=== PATIENT | male | born 1975 | race Caucasian/White ===

== ENCOUNTER 2021-08-27 21:06 | Inpatient (IN) | payer BC ==
[2021-08-27] MEDS ORDERED: IBUPROFEN 600 MG TAB PO STA (21:37)
[2021-08-27] MEDS ORDERED: ACETAMINOPHEN TAB 325 MG TAB PO STA (21:37)
[2021-08-27] MEDS ORDERED: SODIUM CHLORIDE 0.9% 1,000 ML IV ONE (21:38)
[2021-08-27] MEDS ORDERED: DEXAMETHASONE SOD PHOSPHATE 10 MG/ML 1 ML VIAL IV STA (21:38)
--- NOTE | 2021-08-27 21:42 | ED ---
SOB HPI - General Chief Complaint: Shortness of Breath Stated Complaint: BLAYNE, covid+ Time Seen by Provider: 08/27/21 21:11 Source: patient, EMS Mode of arrival: EMS Limitations: no limitations - History of Present Illness Initial Comments: This patient is a 46-year-old man who presents with complaint of shortness of breath, fatigue, decreased by mouth intake, that have all been going on for nearly a week now. He states that just prior to onset of these things she had developed cough, fevers chills, body aches, vomiting and diarrhea and was then diagnosed with COVID-19. He states that he did receive the monoclonal antibody treatment a couple of days ago, but he has only felt worse since that time. MD Complaint: shortness of breath, cough Onset/Timin -: week(s) Consistency: constant Improves With: oxygen Worsens With: exertion Known History Of: other Associated Symptoms: fever, cough Treatments Prior to Arrival: oxygen - Related Data Home Oxygen Therapy: No Allergies Allergy/AdvReac Type Severity Reaction Status Date / Time No Known Allergies Allergy Verified 08/27/21 21:20 Review of Systems ROS Statement: Those systems with pertinent positive or pertinent negative responses have been documented in the HPI. ROS Other: All systems not noted in ROS Statement are negative. Constitutional: Reports: fever, chills, weakness Respiratory: Reports: cough, dyspnea. Denies: hemoptysis Cardiovascular: Denies: chest pain, palpitations, edema, syncope Gastrointestinal: Reports: nausea, vomiting, diarrhea. Denies: abdominal pain, constipation, melena, hematochezia Genitourinary: Denies: dysuria, hematuria Musculoskeletal: Denies: back pain Skin: Denies: rash Neurological: Reports: headache. Denies: weakness, numbness Past Medical History Past Medical History: Diabetes Mellitus History of Any Multi-Drug Resistant Organisms: None Reported Past Surgical History: Back Surgery Additional Past Surgical History / Comment(s): hip surgery Past Psychological History: No Psychological Hx Reported Smoking Status: Never smoker Past Alcohol Use History: Occasional Past Drug Use History: None Reported General Exam Limitations: no limitations General appearance: alert, in no apparent distress Head exam: Present: normocephalic Eye exam: Present: normal appearance. Absent: scleral icterus, conjunctival injection ENT exam: Present: normal oropharynx Neck exam: Present: normal inspection, full ROM. Absent: meningismus Respiratory exam: Present: rales. Absent: respiratory distress, wheezes, rhonchi, stridor Cardiovascular Exam: Present: regular rate, normal rhythm, normal heart sounds. Absent: systolic murmur, diastolic murmur, rubs, gallop GI/Abdominal exam: Present: soft. Absent: distended, tenderness, guarding, rebound, rigid, mass Extremities exam: Present: normal inspection, normal capillary refill. Absent: pedal edema, calf tenderness Back exam: Present: normal inspection. Absent: CVA tenderness (R), CVA tenderness (L) Neurological exam: Present: alert Skin exam: Present: warm, dry, intact, normal color. Absent: rash Course Vital Signs 08/27/21 08/27/21 21:13 22:50 Temperature 100.8 F H Pulse Rate 100 103 H Respiratory 18 20 Rate Blood Pressure 141/88 127/89 O2 Sat by Pulse 86 L 93 L Oximetry Medical Decision Making - Lab Data Result diagrams: 08/27/21 22:50 08/27/21 22:50 Lab Results 08/27/21 08/27/21 08/27/21 Range/Units 22:50 22:50 22:50 WBC 10.4 (3.8-10.6) k/uL RBC 4.96 (4.30-5.90) m/uL Hgb 15.3 (13.0-17.5) gm/dL Hct 42.2 (39.0-53.0) % MCV 85.2 (80.0-100.0) fL MCH 30.9 (25.0-35.0) pg MCHC 36.2 (31.0-37.0) g/dL RDW 12.2 (11.5-15.5) % Plt Count 400 (150-450) k/uL MPV 8.6 Neutrophils % 81 % Lymphocytes % 7 % Monocytes % 8 % Eosinophils % 1 % Basophils % 0 % Neutrophils # 8.4 H (1.3-7.7) k/uL Lymphocytes # 0.7 L (1.0-4.8) k/uL Monocytes # 0.9 (0-1.0) k/uL Eosinophils # 0.1 (0-0.7) k/uL Basophils # 0.1 (0-0.2) k/uL Hyperchromasia Slight D-Dimer 1.39 H (<0.60) mg/L FEU Sodium 132 L (137-145) mmol/L Potassium 4.7 (3.5-5.1) mmol/L Chloride 99 (98-107) mmol/L Carbon Dioxide 24 (22-30) mmol/L Anion Gap 9 mmol/L BUN 18 (9-20) mg/dL Creatinine 0.85 (0.66-1.25) mg/dL Est GFR (CKD-EPI)AfAm >90 (>60 ml/min/1.73 sqM) Est GFR (CKD-EPI)NonAf >90 (>60 ml/min/1.73 sqM) Glucose 204 H (74-99) mg/dL Plasma Lactic Acid Vince (0.7-2.0) mmol/L Calcium 8.6 (8.4-10.2) mg/dL Total Bilirubin 1.5 H (0.2-1.3) mg/dL AST 48 (17-59) U/L ALT 39 (4-49) U/L Alkaline Phosphatase 156 H (38-126) U/L Troponin I (0.000-0.034) ng/mL NT-Pro-B Natriuret Pep pg/mL Total Protein 6.7 (6.3-8.2) g/dL Albumin 3.2 L (3.5-5.0) g/dL 08/27/21 08/27/21 08/27/21 Range/Units 22:50 22:50 22:50 WBC (3.8-10.6) k/uL RBC (4.30-5.90) m/uL Hgb (13.0-17.5) gm/dL Hct (39.0-53.0) % MCV (80.0-100.0) fL MCH (25.0-35.0) pg MCHC (31.0-37.0) g/dL RDW (11.5-15.5) % Plt Count (150-450) k/uL MPV Neutrophils % % Lymphocytes % % Monocytes % % Eosinophils % % Basophils % % Neutrophils # (1.3-7.7) k/uL Lymphocytes # (1.0-4.8) k/uL Monocytes # (0-1.0) k/uL Eosinophils # (0-0.7) k/uL Basophils # (0-0.2) k/uL Hyperchromasia D-Dimer (<0.60) mg/L FEU Sodium (137-145) mmol/L Potassium (3.5-5.1) mmol/L Chloride (98-107) mmol/L Carbon Dioxide (22-30) mmol/L Anion Gap mmol/L BUN (9-20) mg/dL Creatinine (0.66-1.25) mg/dL Est GFR (CKD-EPI)AfAm (>60 ml/min/1.73 sqM) Est GFR (CKD-EPI)NonAf (>60 ml/min/1.73 sqM) Glucose (74-99) mg/dL Plasma Lactic Acid Vince 1.3 (0.7-2.0) mmol/L Calcium (8.4-10.2) mg/dL Total Bilirubin (0.2-1.3) mg/dL AST (17-59) U/L ALT (4-49) U/L Alkaline Phosphatase (38-126) U/L Troponin I <0.012 (0.000-0.034) ng/mL NT-Pro-B Natriuret Pep 64 pg/mL Total Protein (6.3-8.2) g/dL Albumin (3.5-5.0) g/dL - EKG Data -: EKG Interpreted by [facility] EKG shows normal: sinus rhythm, axis (Normal), intervals (Normal), QRS complexes (Normal), ST-T waves (Normal) Rate: normal (Rate 92 bpm) Interpretation: normal EKG Disposition Referrals: Vasiliy Jones DO [Primary Care Provider] - 1-2 days
--- NOTE | 2021-08-27 22:32 | XR ---
EXAMINATION TYPE: XR chest 2V DATE OF EXAM: 08/27/2021 COMPARISON: NONE HISTORY: Short of breath TECHNIQUE: 2 views FINDINGS: Heart and mediastinum are normal. There is patchy bilateral pulmonary interstitial and airs pace infiltrates. Costophrenic angles are clear. Mediastinum within normal limits. There are no hilar masses. Bony thorax is intact. IMPRESSION: Patchy bilateral extensive airspace pneumonia.
[2021-08-27 22:48] LABS: Basophils # (A) 0.1 k/uL (0-0.2); Basophils % (A) 0 %; Eosinophils # (A) 0.1 k/uL (0-0.7); Eosinophils % (A) 1 %; HCT 42.2 % (39.0-53.0); HGB 15.3 gm/dL (13.0-17.5); Hyperchromasia Slight; Lymphocytes # (A) 0.7 k/uL (1.0-4.8); Lymphocytes % (A) 7 %; MCH 30.9 pg (25.0-35.0); MCHC 36.2 g/dL (31.0-37.0); MCV 85.2 fL (80.0-100.0); Mean Platelet Volume 8.6; Monocytes # (A) 0.9 k/uL (0-1.0); Monocytes % (A) 8 %; Neutrophils # (A) 8.4 k/uL (1.3-7.7); Neutrophils % (A) 81 %; Platelet Count 400 k/uL (150-450); RBC 4.96 m/uL (4.30-5.90); RDW 12.2 % (11.5-15.5); WBC 10.4 k/uL (3.8-10.6)
[2021-08-27 23:14] LABS: ALT 39 U/L (4-49); African American GFR (CKD) >90 (>60 ml/min/1.73 sqM); Anion Gap 9 mmol/L; Blood Urea Nitrogen 18 mg/dL (9-20); Calcium 8.6 mg/dL (8.4-10.2); Carbon Dioxide 24 mmol/L (22-30); Chloride 99 mmol/L (98-107); Glucose 204 mg/dL (74-99); Non-African American GFR(CKD) >90 (>60 ml/min/1.73 sqM); Sodium 132 mmol/L (137-145); Total Bilirubin 1.5 mg/dL (0.2-1.3)
[2021-08-28 00:01] LABS: AST 48 U/L (17-59); Albumin 3.2 g/dL (3.5-5.0); Alkaline Phosphatase 156 U/L (38-126); Potassium 4.7 mmol/L (3.5-5.1); Total Protein 6.7 g/dL (6.3-8.2)
--- NOTE | 2021-08-28 01:06 | CT ---
EXAMINATION TYPE: CT chest angio for PE DATE OF EXAM: 08/28/2021 COMPARISON: None HISTORY: pe CT DLP: 289.4 mGycm Automated exposure control for dose reduction was used. CONTRAST: Performed with IV Contrast, patient injected with 90 mL of Isovue 370. Images obtained from the thoracic inlet to the diaphragm with IV contrast. There are 3-D post process ed images. There is extensive patchy airspace consolidation in both lungs. Heart is within normal limits of size . There is no pericardial effusion. There is no pleural effusion or pneumothorax. There is no mediastinal adenopathy. There are a few bronchial lymph nodes up to 1 cm. Thoracic aorta is intact. There is no aneurysm or dissection. There is no evidence of filling defect in the pulmonary arteries. The thoracic vertebra have normal alignment. Sternum is intact. Posterior elements are intact. IMPRESSION: No evidence of pulmonary embolism. Extensive pulmonary airspace infiltrates.
[2021-08-28] MEDS ORDERED: PNEUMONIA PROTOCOL UTILIZED 1 EACH MISC PO PRN (01:43)
[2021-08-28] MEDS ORDERED: ALBUTEROL NEBULIZED 2.5 MG/3 ML INHALATION PRN (01:48)
[2021-08-28] MEDS ORDERED: AZITHROMYCIN 500 MG in SODIUM CHLORIDE 0.9% 250 ML IVPB ONE (02:00)
[2021-08-28] MEDS: SODIUM CHLORIDE 0.9% 1,000 ML IV SCH ×3 (02:20→21:02)
[2021-08-28] MEDS: ALBUTEROL HFA INHALER INHALATION SCH ×5 (07:00→20:54)
[2021-08-28] MEDS: DEXAMETHASONE SOD PHOSPHATE 10 MG/ML 1 ML VIAL IV SCH (09:33)
[2021-08-28] MEDS ORDERED: ONDANSETRON 4 MG/2 ML VIAL IVP PRN (13:14)
[2021-08-28] MEDS ORDERED: MELATONIN 3 MG TABLET PO PRN (13:14)
[2021-08-28] MEDS ORDERED: NALOXONE 0.4 MG/ML 1 ML VIAL IV PRN (13:14)
[2021-08-28] MEDS ORDERED: MAG HYDROX/AL HYDROX/SIMETH 30 ML CUP PO PRN (13:14)
[2021-08-28] MEDS ORDERED: CALCIUM CARBONATE 500 MG CHEWABLE PO PRN (13:14)
--- NOTE | 2021-08-28 13:19 | P.HPIM ---
History of Present Illness H&P Date: 08/28/21 Chief Complaint: Shortness of breath This is a 46-year-old patient who follows with Dr. Jones. Patient is a known diabetic. Patient is not vaccinated against COVID 19. Patient's had respiratory symptoms that started closer 2 weeks ago. Symptoms have been progressive. Increase in shortness of breath. Cough. Fever or chills. No diarrhea. Decrease in taste and smell. Nausea. Poor appetite. Patient's also got the COVID 19. 4 days ago patient did receive the antibodies. Symptoms have been worsening has decided to come in. Pulse ox was 86% on room air upon presentation. Review of systems: GEN.: Fever, chills, decreased appetite EYES: None HEENT: Loss of taste and smell NECK: None RESPIRATORY: As above CARDIOVASCULAR: None GASTROINTESTINAL: None GENITOURINARY: None MUSCULOSKELETAL: None LYMPHATICS: None HEMATOLOGICAL: None PSYCHIATRY: None NEUROLOGICAL: None Past medical history to include: Diabetes mellitus type 2 Social history: . Does not smoke. Alcohol occasionally. 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 EYES: Pupils equal. Conjunctiva normal. HEENT: External appearance of nose and ears normal, oral cavity grossly normal. NECK: JVD not raised; masses not palpable. HEART: First and second heart sounds are normal; no edema. LUNGS: Respiratory rate increased; bilateral basilar crackles. ABDOMEN: Soft, nontender, liver spleen not palpable, no masses palpable. PSYCH: Alert and oriented x3; mood and affect anxiousl. NEUROLOGICAL: Cranial nerves grossly intact; no facial asymmetry, power and sensation grossly intact. LYMPHATICS: No lymph nodes palpable in the axilla and neck INVESTIGATIONS, reviewed in the clinical context: WBC 10.4 hemoglobin 15.3 platelets 400 d-dimer 1.39 sodium 132 potassium 4.7 BUN 18 creatinine 0.85 troponin I less than 0.012 EKG tracing personally reviewed by me-normal sinus rhythm Chest x-ray film personally reviewed by me-bilateral scattered infiltrates Computed tomography scan of chest angina for PE: Negative for PE. Extensive pulmonary airspace infiltrates Assessment and plan: -Acute bilateral severe rhinitis/COVID 19, and an vaccinated patient. Patient did receive the antibody treatment 4 days ago. Symptoms have been progressively getting worse. Started symptoms about 14 years ago. Lovenox 70 mg subcu twice a day, oxygen supplementation, vitamin C, vitamin D, zinc sulfate, IV Decadron. Consult pulmonary, ID- -Acute hypoxic respiratory failure from COVID 19 On 6 L of nasal cannula -Diabetes mellitus type 2 on oral hypoglycemic Diabetic diet. Follow Accu-Cheks -Mild hyponatremia from decreased solute intake -Hypoalbuminemia, acute phase reactant Oxygen supplementation, IV Decadron, subcu Lovenox, vitamin C vitamin D zinc sulfate, incentive spirometry. Consult ID and pulmonary Given the complexity and severity of patient's condition expect the patient to be in the hospital at least for 2 overnights Past Medical History Past Medical History: Diabetes Mellitus History of Any Multi-Drug Resistant Organisms: None Reported Past Surgical History: Back Surgery Additional Past Surgical History / Comment(s): hip surgery Past Psychological History: No Psychological Hx Reported Smoking Status: Never smoker Past Alcohol Use History: Occasional Past Drug Use History: None Reported Medications and Allergies Home Medications Medication Instructions Recorded Confirmed Type sitaGLIPtin PHOS/metFORMIN HCL 1 tab PO AC-BID 08/28/21 08/28/21 History [Janumet 50-1,000 mg Tablet] Allergies Allergy/AdvReac Type Severity Reaction Status Date / Time No Known Allergies Allergy Verified 08/28/21 07:20 Physical Exam Vitals: Vital Signs Temp Pulse Resp BP Pulse Ox 08/28/21 05:00 97.4 F L 73 17 119/84 97 08/28/21 02:26 98.8 F 08/28/21 00:33 99.3 F 93 17 110/79 94 L 08/27/21 22:50 103 H 20 127/89 93 L 08/27/21 21:13 100.8 F H 100 18 141/88 86 L Intake and Output 08/27/21 08/28/21 08/28/21 22:59 06:59 14:59 Other: Weight 72.575 kg Results CBC & Chem 7: 08/27/21 22:50 08/27/21 22:50 Labs: Abnormal Lab Results - Last 24 Hours (Table) 08/27/21 08/27/21 08/27/21 Range/Units 22:50 22:50 22:50 Neutrophils # 8.4 H (1.3-7.7) k/uL Lymphocytes # 0.7 L (1.0-4.8) k/uL D-Dimer 1.39 H (<0.60) mg/L FEU Sodium 132 L (137-145) mmol/L Glucose 204 H (74-99) mg/dL Total Bilirubin 1.5 H (0.2-1.3) mg/dL Alkaline Phosphatase 156 H (38-126) U/L Albumin 3.2 L (3.5-5.0) g/dL
[2021-08-28] MEDS: CHOLECALCIFEROL 25 MCG (1000 IU) TABLET PO SCH (13:40)
[2021-08-28] MEDS: ZINC SULFATE 220 MG CAP PO SCH (13:40)
[2021-08-28] MEDS: ASCORBIC ACID 500 MG TAB PO SCH (13:40)
--- NOTE | 2021-08-28 14:59 | P.CNPUL ---
History of Present Illness Consult date: 08/28/21 Requesting physician: Constantino Diaz Reason for consult: dyspnea, hypoxemia, pneumonia, abnormal CXR/CT Chief complaint: COVID-19 pneumonia, shortness of breath History of present illness: 46-year-old white male patient with past medical history of diabetes mellitus, never smoker, chronic back pain, patient is not vaccinated against COVID-19, who came into the emergency department on 08/27/2021 for evaluation of shortness of breath, fatigue, decreased oral intake, vomiting. He states he was recently diagnosed with COVID-19, he had a positive COVID-19 test on August 19. His symptoms started a week prior to that around August 15. His is also COVID positive. However she is less than him, yesterday he noted he was more short of breath, very weak, and his pulse ox was down to 78-84% on room air, called EMS. Patient states that he did receive the monoclonal antibody treatment a couple days ago however has continued to feel worse. His chest x-ray on 08/27/2021 shows patchy bilateral extensive airspace pneumonia. He was satting 86% on room air in the emergency department, he had a low-grade fever with a temp of 100.8F, he is currently up to 6 L on supplemental oxygen, his pulse ox is 92%, his blood work in the emergency department shows white blood cell count 10.4, hemoglobin of 15.3, full code is 8.4, lymphocyte count 0.7, d-dimer is 1.39, sodium is 132, the rest of electrolytes were unremarkable, plasma lactic acid was 1.3, AST and ALT were 48 and 39, alkaline phosphatase was 156, troponin was less than 0.012, proBNP was normal at 64. CTA chest has been completed showing no evidence of pulmonary embolism, it did show extensive pulmonary airspace infiltrates. EKG showed normal sinus rhythm. Patient was given a liter and a fluid bolus with 0.9 normal saline, his maintenance IVs currently is at 100 ML per hour, he was started on IV Lovenox 6 mg daily, with initial dose of 10 mg IV push in the emergency department, his Lovenox dose is 60 mg twice daily however there is no evidence of PE. Pro-calcitonin level has been sent and is pending, blood cultures have been sent. Review of Systems All systems: negative Constitutional: Denies chills, Denies fever Eyes: denies blurred vision, denies pain Ears, nose, mouth and throat: Denies headache, Denies sore throat Cardiovascular: Denies chest pain, Denies shortness of breath Respiratory: Reports dyspnea, Denies cough Gastrointestinal: Denies abdominal pain, Denies diarrhea, Denies nausea, Denies vomiting Musculoskeletal: Denies myalgias Integumentary: Denies pruritus, Denies rash Neurological: Denies numbness, Denies weakness Psychiatric: Denies anxiety, Denies depression Endocrine: Denies fatigue, Denies weight change Past Medical History Past Medical History: Diabetes Mellitus History of Any Multi-Drug Resistant Organisms: None Reported Past Surgical History: Back Surgery Additional Past Surgical History / Comment(s): hip surgery Past Psychological History: No Psychological Hx Reported Smoking Status: Never smoker Past Alcohol Use History: Occasional Past Drug Use History: None Reported Medications and Allergies Home Medications Medication Instructions Recorded Confirmed Type sitaGLIPtin PHOS/metFORMIN HCL 1 tab PO AC-BID 08/28/21 08/28/21 History [Janumet 50-1,000 mg Tablet] Allergies Allergy/AdvReac Type Severity Reaction Status Date / Time No Known Allergies Allergy Verified 08/28/21 07:20 Physical Exam Vitals: Vital Signs Temp Pulse Resp BP Pulse Ox 08/28/21 13:09 104 H 22 134/86 93 L 08/28/21 11:00 88 18 122/85 94 L 08/28/21 10:14 97.3 F L 95 17 122/85 95 08/28/21 07:45 81 22 133/85 94 L 08/28/21 05:00 97.4 F L 73 17 119/84 97 08/28/21 02:26 98.8 F 08/28/21 00:33 99.3 F 93 17 110/79 94 L 08/27/21 22:50 103 H 20 127/89 93 L 08/27/21 21:13 100.8 F H 100 18 141/88 86 L Intake and Output 08/27/21 08/28/21 08/28/21 22:59 06:59 14:59 Other: Weight 72.575 kg GENERAL EXAM: Alert, very pleasant, 46-year-old white male, resting on the gurney, on 6 L of oxygen and the pulse ox of 94% comfortable in no apparent distress. HEAD: Normocephalic/atraumatic. EYES: Normal reaction of pupils, equal size. Conjunctiva pink, sclera white. NOSE: Clear with pink turbinates. THROAT: No erythema or exudates. NECK: No masses, no JVD, no thyroid enlargement, no adenopathy. CHEST: No chest wall deformity. Symmetrical expansion. LUNGS: Equal air entry with bibasilar crackles CVS: Regular rate and rhythm, normal S1 and S2, no gallops, no murmurs, no rubs ABDOMEN: Soft, nontender. No hepatosplenomegaly, normal bowel sounds, no guarding or rigidity. EXTREMITIES: No clubbing, no edema, no cyanosis, 2+ pulses and upper and lower extremities. MUSCULOSKELETAL: Muscle strength and tone normal. SPINE: No scoliosis or deformity SKIN: No rashes CENTRAL NERVOUS SYSTEM: Alert and oriented -3. No focal deficits, tone is normal in all 4 extremities. PSYCHIATRIC: Alert and oriented -3. Appropriate affect. Intact judgment and insight. Results - Laboratory Findings CBC and BMP: 08/27/21 22:50 08/27/21 22:50 PT/INR, D-dimer D-Dimer 1.39 mg/L FEU (<0.60) H 08/27/21 22:50 Abnormal lab findings: Abnormal Labs 08/27/21 08/27/21 08/27/21 22:50 22:50 22:50 Neutrophils # 8.4 H Lymphocytes # 0.7 L D-Dimer 1.39 H Sodium 132 L Glucose 204 H Total Bilirubin 1.5 H Alkaline Phosphatase 156 H Albumin 3.2 L - Diagnostic Findings Chest x-ray: report reviewed, image reviewed CT scan - chest: report reviewed, image reviewed Assessment and Plan Plan: Assessment: #1. Acute hypoxic respiratory failure related to acute COVID-19 pneumonia, with onset of symptoms 2 weeks prior to the presentation. Patient is not vaccinated for COVID-19. He had a positive COVID-19 test on August 19, 2021. Patient status post monoclonal antibody infusion on an outpatient basis . Not a candidate for Remdesivir at this time, we'll continue with Decadron and prophylactic anticoagulation, CTA chest showed no evidence of pulmonary embolism #2. Elevated d-dimer, CTA chest negative for pulmonary embolism #3. Mild hyponatremia, with a serum sodium of 132, related to dehydration. Patient reports poor oral intake and nausea and vomiting at home #4. Diabetes mellitus type 2 #5. Nonsmoker Plan: Not a candidate for Remdesivir at this time We will continue with IV Decadron 6 mg daily Continue with prophylactic Lovenox 40 mg daily, no evidence of pulmonary embolism on the CT chest Continue IV hydration Continue COVID-19 vitamins We'll follow inflammatory markers and daily d-dimer Obtain lower extremity Doppler Continue to follow his clinical course make further recommendations I performed a history & physical examination of the patient and discussed their management with my nurse practitioner, Lillian Zhao. I reviewed the nurse practitioner's note and agree with the documented findings and plan of care. Lung sounds are positive for diffuse crackles throughout the lung [place]. The findings and the impression was discussed with the patient. I attest to the documentation by the nurse practitioner. Time with Patient: Greater than 30
--- NOTE | 2021-08-28 15:41 | US ---
EXAMINATION TYPE: US venous doppler duplex LE DATE OF EXAM: 08/28/2021 3:30 PM COMPARISON: NONE CLINICAL HISTORY: elevated d-dimer, covid 19. Covid. No redness. No swelling. SIDE PERFORMED: Bilateral TECHNIQUE: The lower extremity deep venous system is examined utilizing real time linear array sonog hussain with graded compression, doppler sonography and color-flow sonography. VESSELS IMAGED: Common Femoral Vein Deep Femoral Vein Greater Saphenous Vein * Femoral Vein Popliteal Vein Small Saphenous Vein * Proximal Calf Veins (* superficial vessels) Right Leg: Negative for DVT Left Leg: Negative for DVT Grayscale, color doppler, spectral doppler imaging performed of the deep veins of the bilateral lower extremities. There is normal flow, compressibility, vascular waveforms. IMPRESSION: No ultrasound evidence for acute DVT in either lower extremity.
[2021-08-28 17:04] LABS: Glucose,Whole Blood 422 mg/dL (75-99)
[2021-08-28] MEDS: INSULIN ASPART (NovoLOG) 100 UNIT/ML VIAL SQ SCH ×2 (17:06→20:58)
[2021-08-28 20:38] LABS: Glucose,Whole Blood 413 mg/dL (75-99)
[2021-08-28] MEDS ORDERED: ENOXAPARIN 60 MG/0.6 ML SYRINGE SQ SCH (21:00)
[2021-08-28 22:26] LABS: Glucose,Whole Blood 396 mg/dL (75-99)
[2021-08-28] MEDS ORDERED: INSULIN REGULAR BOLUS (FROM DRIP BAG) IV ONE (22:58)
[2021-08-28] MEDS ORDERED: INSULIN REGULAR 100 UNIT in SODIUM CHLORIDE 0.9% 100 ML IV SCH (23:15)
[2021-08-29 00:40] LABS: Glucose,Whole Blood 367 mg/dL (75-99)
[2021-08-29 01:25] LABS: Glucose,Whole Blood 331 mg/dL (75-99)
[2021-08-29 02:04] LABS: Glucose,Whole Blood 282 mg/dL (75-99)
[2021-08-29 02:47] LABS: Glucose,Whole Blood 256 mg/dL (75-99)
[2021-08-29 03:30] LABS: Glucose,Whole Blood 287 mg/dL (75-99)
[2021-08-29 04:40] LABS: Glucose,Whole Blood 229 mg/dL (75-99)
[2021-08-29 05:27] LABS: Glucose,Whole Blood 260 mg/dL (75-99)
[2021-08-29 06:20] LABS: Glucose,Whole Blood 243 mg/dL (75-99)
[2021-08-29 07:05] LABS: Glucose,Whole Blood 238 mg/dL (75-99)
--- NOTE | 2021-08-29 07:05 | XR ---
EXAMINATION TYPE: XR chest 1V portable DATE OF EXAM: 08/29/2021 CLINICAL HISTORY: Difficulty breathing progress study. COVID. TECHNIQUE: Single AP portable upright view of the chest is obtained. COMPARISON: Chest x-ray from 2 days earlier. CTA chest from yesterday. FINDINGS: Bilateral multifocal increased opacities redemonstrated. Relative sparing of left upper valerie ng again seen. Cardiac silhouette size stable and within normal limits. Osseous structures are intact . IMPRESSION: Bilateral multifocal opacities consistent with covid-19 infection are redemonstrated. No significant change from recent studies.
[2021-08-29 07:54] LABS: C Reactive Protein 8.7 mg/dL (<1.0)
[2021-08-29 08:00] LABS: Glucose,Whole Blood 202 mg/dL (75-99)
[2021-08-29] MEDS: CHOLECALCIFEROL 25 MCG (1000 IU) TABLET PO SCH (08:03)
[2021-08-29] MEDS: SODIUM CHLORIDE 0.9% 1,000 ML IV SCH ×2 (08:03→17:23)
[2021-08-29] MEDS: ZINC SULFATE 220 MG CAP PO SCH (08:03)
[2021-08-29] MEDS: ASCORBIC ACID 500 MG TAB PO SCH (08:03)
[2021-08-29] MEDS: ENOXAPARIN 40 MG/0.4 ML SYRINGE SQ SCH (08:03)
[2021-08-29] MEDS: DEXAMETHASONE SOD PHOSPHATE 10 MG/ML 1 ML VIAL IV SCH (08:03)
[2021-08-29] MEDS: ALBUTEROL HFA INHALER INHALATION SCH ×4 (08:52→23:24)
[2021-08-29 10:16] LABS: Glucose,Whole Blood 190 mg/dL (75-99)
[2021-08-29 11:48] LABS: Glucose,Whole Blood 254 mg/dL (75-99)
[2021-08-29 14:04] LABS: Glucose,Whole Blood 251 mg/dL (75-99)
--- NOTE | 2021-08-29 14:33 | P.PN ---
Subjective Progress Note Date: 08/29/21 Principal diagnosis: COVID-19 pneumonia 46-year-old white male patient with past medical history of diabetes mellitus, never smoker, chronic back pain, patient is not vaccinated against COVID-19, who came into the emergency department on 08/27/2021 for evaluation of shortness of breath, fatigue, decreased oral intake, vomiting. He states he was recently diagnosed with COVID-19, he had a positive COVID-19 test on August 19. His symptoms started a week prior to that around August 15. His is also COVID positive. However she is less than him, yesterday he noted he was more short of breath, very weak, and his pulse ox was down to 78-84% on room air, called EMS. Patient states that he did receive the monoclonal antibody treatment a couple days ago however has continued to feel worse. His chest x-ray on 08/27/2021 shows patchy bilateral extensive airspace pneumonia. He was satting 86% on room air in the emergency department, he had a low-grade fever with a temp of 100.8F, he is currently up to 6 L on supplemental oxygen, his pulse ox is 92%, his blood work in the emergency department shows white blood cell count 10.4, hemoglobin of 15.3, full code is 8.4, lymphocyte count 0.7, d-dimer is 1.39, sodium is 132, the rest of electrolytes were unremarkable, plasma lactic acid was 1.3, AST and ALT were 48 and 39, alkaline phosphatase was 156, troponin was less than 0.012, proBNP was normal at 64. CTA chest has been completed showing no evidence of pulmonary embolism, it did show extensive pulmonary airspace infiltrates. EKG showed normal sinus rhythm. Patient was given a liter and a fluid bolus with 0.9 normal saline, his maintenance IVs currently is at 100 ML per hour, he was started on IV Lovenox 6 mg daily, with initial dose of 10 mg IV push in the emergency department, his Lovenox dose is 60 mg twice daily however there is no evidence of PE. Pro-calcitonin level has been sent and is pending, blood cultures have been sent. On 08/29/2021 patient is seen in follow-up on medical surgical floor, he is currently on 5 L of oxygen, does not appear to be in any acute distress, he does have exertional dyspnea, but he was able to get up in the shower today. Pulse ox on 5 L of oxygen was 93-95%, he was afebrile, hemodynamically has been sta ble. CTA chest showed no evidence of pulmonary embolism. His lower extremity Dopplers were negative for DVT. Patient is Lovenox 40 mg once daily, he is on IV hydration with 0.9 normal saline at a rate of 100 ML per hour. He remains on Decadron 6 mg daily. Pro-calcitonin level was 0.40, LDH was 690, and CRP was 8.7. D-dimer was 1.53. Patient has been started on insulin infusion at 5 units per hour for hyperglycemia. He remains on Decadron 6 mg daily, he is on COVID- 19 vitamins. His antibiotics have been discontinued in view of negative pro- calcitonin. Overall she is feeling better, his had no fevers overnight. Objective - Vital Signs Vital signs: Vital Signs Temp 97.4 F L 08/29/21 09:30 Pulse 86 08/29/21 09:30 Resp 18 08/29/21 09:30 BP 125/66 08/29/21 09:30 Pulse Ox 93 L 08/29/21 09:30 Intake & Output 08/28/21 08/29/21 08/29/21 18:59 06:59 18:59 Intake Total 1015 268.091 Output Total 800 Balance 215 268.091 Weight 72.575 kg Intake: Intake, IV Titration 775 28.091 Amount Insulin Regular 100 unit 75 28.091 In Sodium Chloride 0.9% 100 ml @ Titrate IV .Q0M [facility]IK Rx#:[id number] Sodium Chloride 0.9% 1, 700 000 ml @ 100 mls/hr IV . Q10H [facility]IK Rx#:[id number] Oral 240 240 Output: Urine 800 Other: Voiding Method Toilet Toilet # Voids 2 - Exam GENERAL EXAM: Alert, very pleasant, 46-year-old white male, resting on the gurney, on 5 L of oxygen and the pulse ox of 94% comfortable in no apparent distress. HEAD: Normocephalic/atraumatic. EYES: Normal reaction of pupils, equal size. Conjunctiva pink, sclera white. NOSE: Clear with pink turbinates. THROAT: No erythema or exudates. NECK: No masses, no JVD, no thyroid enlargement, no adenopathy. CHEST: No chest wall deformity. Symmetrical expansion. LUNGS: Equal air entry with bibasilar crackles CVS: Regular rate and rhythm, normal S1 and S2, no gallops, no murmurs, no rubs ABDOMEN: Soft, nontender. No hepatosplenomegaly, normal bowel sounds, no guarding or rigidity. EXTREMITIES: No clubbing, no edema, no cyanosis, 2+ pulses and upper and lower extremities. MUSCULOSKELETAL: Muscle strength and tone normal. SPINE: No scoliosis or deformity SKIN: No rashes CENTRAL NERVOUS SYSTEM: Alert and oriented -3. No focal deficits, tone is normal in all 4 extremities. PSYCHIATRIC: Alert and oriented -3. Appropriate affect. Intact judgment and insight. - Labs CBC & Chem 7: 08/27/21 22:50 08/27/21 22:50 Labs: Abnormal Lab Results - Last 24 Hours (Table) 08/27/21 08/28/21 08/28/21 Range/Units 22:50 17:03 20:36 D-Dimer (<0.60) mg/L FEU POC Glucose (mg/dL) 422 H 413 H (75-99) mg/dL Hemoglobin A1c (4.0-6.0) % Lactate Dehydrogenase (313-618) U/L C-Reactive Protein (<1.0) mg/dL Procalcitonin 0.40 H (0.02-0.09) ng/mL 08/28/21 08/29/21 08/29/21 Range/Units 22:24 00:38 01:23 D-Dimer (<0.60) mg/L FEU POC Glucose (mg/dL) 396 H 367 H 331 H (75-99) mg/dL Hemoglobin A1c (4.0-6.0) % Lactate Dehydrogenase (313-618) U/L C-Reactive Protein (<1.0) mg/dL Procalcitonin (0.02-0.09) ng/mL 08/29/21 08/29/21 08/29/21 Range/Units 02:02 02:45 03:28 D-Dimer (<0.60) mg/L FEU POC Glucose (mg/dL) 282 H 256 H 287 H (75-99) mg/dL Hemoglobin A1c (4.0-6.0) % Lactate Dehydrogenase (313-618) U/L C-Reactive Protein (<1.0) mg/dL Procalcitonin (0.02-0.09) ng/mL 08/29/21 08/29/21 08/29/21 Range/Units 04:38 05:25 05:54 D-Dimer (<0.60) mg/L FEU POC Glucose (mg/dL) 229 H 260 H (75-99) mg/dL Hemoglobin A1c 8.4 H (4.0-6.0) % Lactate Dehydrogenase (313-618) U/L C-Reactive Protein (<1.0) mg/dL Procalcitonin (0.02-0.09) ng/mL 08/29/21 08/29/21 08/29/21 Range/Units 06:18 06:29 06:29 D-Dimer 1.53 H (<0.60) mg/L FEU POC Glucose (mg/dL) 243 H (75-99) mg/dL Hemoglobin A1c (4.0-6.0) % Lactate Dehydrogenase 690 H (313-618) U/L C-Reactive Protein 8.7 H (<1.0) mg/dL Procalcitonin (0.02-0.09) ng/mL 08/29/21 08/29/21 08/29/21 Range/Units 07:02 07:57 10:13 D-Dimer (<0.60) mg/L FEU POC Glucose (mg/dL) 238 H 202 H 190 H (75-99) mg/dL Hemoglobin A1c (4.0-6.0) % Lactate Dehydrogenase (313-618) U/L C-Reactive Protein (<1.0) mg/dL Procalcitonin (0.02-0.09) ng/mL 08/29/21 08/29/21 Range/Units 11:44 14:00 D-Dimer (<0.60) mg/L FEU POC Glucose (mg/dL) 254 H 251 H (75-99) mg/dL Hemoglobin A1c (4.0-6.0) % Lactate Dehydrogenase (313-618) U/L C-Reactive Protein (<1.0) mg/dL Procalcitonin (0.02-0.09) ng/mL Microbiology - Last 24 Hours (Table) 08/28/21 02:19 Blood Culture - Preliminary Blood No Growth after 24 hours 08/28/21 02:19 Blood Culture - Preliminary Blood No Growth after 24 hours Assessment and Plan Plan: Assessment: #1. Acute hypoxic respiratory failure related to acute COVID-19 pneumonia, with onset of symptoms 2 weeks prior to the presentation. Patient is not vaccinated for COVID-19. He had a positive COVID-19 test on August 19, 2021. Patient status post monoclonal antibody infusion on an outpatient basis . Not a candidate for Remdesivir at this time, we'll continue with Decadron and prophylactic anticoagulation, CTA chest showed no evidence of pulmonary embolism #2. Elevated d-dimer, CTA chest negative for pulmonary embolism #3. Mild hyponatremia, with a serum sodium of 132, related to dehydration. Patient reports poor oral intake and nausea and vomiting at home #4. Diabetes mellitus type 2 #5. Nonsmoker Plan: Continue current medical treatment We will continue with IV Decadron 6 mg daily Continue with prophylactic Lovenox 40 mg daily, no evidence of pulmonary embolism on the CT chest Continue IV hydration Continue COVID-19 vitamins We'll follow inflammatory markers and daily d-dimer Obtain lower extremity Doppler Continue to follow his clinical course make further recommendations Follow-up d-dimer, and inflammatory markers tomorrow, follow up chest x-ray. I performed a history & physical examination of the patient and discussed their management with my nurse practitioner, Lillian Zhao. I reviewed the nurse practitioner's note and agree with the documented findings and plan of care. Lung sounds are positive for diffuse crackles throughout the lung [place]. The findings and the impression was discussed with the patient. I attest to the documentation by the nurse practitioner. Time with Patient: Less than 30
[2021-08-29 16:05] LABS: Glucose,Whole Blood 216 mg/dL (75-99)
--- NOTE | 2021-08-29 16:25 | P.PN ---
Progress Note - Text Progress Note Date: 08/29/21 Chief Complaint: Shortness of breath This is a 46-year-old patient who follows with Dr. Jones. Patient is a known diabetic. Patient is not vaccinated against COVID 19. Patient's had respiratory symptoms that started closer 2 weeks ago. Symptoms have been progressive. Increase in shortness of breath. Cough. Fever or chills. No diarrhea. Decrease in taste and smell. Nausea. Poor appetite. Patient's also got the COVID 19. 4 days ago patient did receive the antibodies. Symptoms have been worsening has decided to come in. Pulse ox was 86% on room air upon presentation. Admitted with COVID 19 pneumonitis, acute hypoxic respiratory failure. Started on dexamethasone and supportive care, oxygen. 08/29/2021: In bed. Short of breath. Congested cough. Decrease appetite. Accu-Cheks running into 400 yesterday evening. Started on insulin drip. Oral intake about 50-75% Review of systems: Was done for constitutional, cardiovascular, GI, pulmonary. relevant finding as above Active Medications Al Hydroxide/Mg Hydroxide (Mag Hydrox/Al Hydrox/Simeth 30 Ml Cup) 15 ml PO Q6HR PRN PRN Reason: Indigestion Albuterol Sulfate (Albuterol Nebulized 2.5 Mg/3 Ml) 2.5 mg INHALATION RT-Q4H PRN PRN Reason: Dyspnea Albuterol Sulfate (Albuterol Hfa Inhaler) 3 puff INHALATION RT-QID [facility] Last Admin: 08/29/21 12:10 Dose: Not Given Documented by: Ascorbic Acid (Ascorbic Acid 500 Mg Tab) 500 mg PO DAILY [facility] Last Admin: 08/29/21 08:03 Dose: 500 mg Documented by: Calcium Carbonate/Glycine (Calcium Carbonate 500 Mg Chewable) 1,000 mg PO Q4HR PRN PRN Reason: Dyspepsia Cholecalciferol (Cholecalciferol 25 Mcg (1000 Iu) Tablet) 100 mcg PO DAILY [facility] Last Admin: 08/29/21 08:03 Dose: 100 mcg Documented by: Dexamethasone Sodium Phosphate (Dexamethasone Sod Phosphate 10 Mg/Ml 1 Ml Vial) 6 mg IV DAILY [facility] Last Admin: 08/29/21 08:03 Dose: 6 mg Documented by: Enoxaparin Sodium (Enoxaparin 40 Mg/0.4 Ml Syringe) 40 mg SQ DAILY [facility] Last Admin: 08/29/21 08:03 Dose: 40 mg Documented by: Sodium Chloride (Saline 0.9%) 1,000 mls @ 100 mls/hr IV .Q10H [facility] Last Admin: 08/29/21 08:03 Dose: 100 mls/hr Documented by: Insulin Human Regular 100 unit (/ Sodium Chloride) 101 mls @ 0 mls/hr IV .Q0M [facility]; Protocol Last Titration: 08/29/21 16:05 Dose: 3 mls/hr, 3 mls/hr Documented by: Melatonin (Melatonin 3 Mg Tablet) 3 mg PO HS PRN PRN Reason: Insomnia Miscellaneous Information (Pneumonia Protocol Utilized 1 Each Misc) 1 each PO ONCE PRN PRN Reason: Per Protocol Naloxone HCl (Naloxone 0.4 Mg/Ml 1 Ml Vial) 0.2 mg IV Q2M PRN PRN Reason: Opioid Reversal Ondansetron HCl (Ondansetron 4 Mg/2 Ml Vial) 4 mg IVP Q8HR PRN PRN Reason: Nausea And Vomiting Zinc Sulfate (Zinc Sulfate 220 Mg Cap) 220 mg PO DAILY [facility] Last Admin: 08/29/21 08:03 Dose: 220 mg Documented by: Past medical history to include: Diabetes mellitus type 2 Social history: . Does not smoke. Alcohol occasionally. [place] Family history: Reviewed, noncontributory to presentation Physical examination: VITAL SIGNS: Afebrile, 86, 18, 125/66, 93% on 5 L GENERAL: Laying in bed, awake, tired EYES: Pupils equal. Conjunctiva normal. HEENT: External appearance of nose and ears normal, oral cavity grossly normal. PSYCH: Alert and oriented x3; mood and affect anxious. NEUROLOGICAL: Cranial nerves grossly intact; no facial asymmetry, moving all 4 limbs Rest of exam per pulmonary and nursing INVESTIGATIONS, reviewed in the clinical context: July 30: D-dimer 1.53 HbA1c 690 CRP 8.7 WBC 10.4 hemoglobin 15.3 platelets 400 d-dimer 1.39 sodium 132 potassium 4.7 BUN 18 creatinine 0.85 troponin I less than 0.012 EKG tracing personally reviewed by me-normal sinus rhythm Chest x-ray film personally reviewed by me-bilateral scattered infiltrates Computed tomography scan of chest angina for PE: Negative for PE. Extensive pulmonary airspace infiltrates Assessment and plan: -Acute bilateral severe pneumonitis/COVID 19, in a non-vaccinated patient. Received antibody treatment 4 days prior to admission: Slow to respond Lovenox subcu day, oxygen supplementation, vitamin C, vitamin D, zinc sulfate, IV Decadron. -Acute hypoxic respiratory failure from COVID 19: Slow to respond On 5 L of nasal cannula -Diabetes mellitus type 2 on oral hypoglycemic: Uncontrolled with hyperglycemia HbA1c 8.4 IV insulin drip -Mild hyponatremia from decreased solute intake -Hypoalbuminemia, acute phase reactant Oxygen supplementation, IV Decadron, subcu Lovenox, insulin drip. Patient encouraged to sit up in a chair. We'll start the patient on Levemir 30 units starting tonight. Stop insulin drip tonight. Sliding scale to continue. Check lipid profile.
[2021-08-29] MEDS: INSULIN ASPART (NovoLOG) 100 UNIT/ML VIAL SQ SCH ×2 (16:31→18:12)
[2021-08-29 18:09] LABS: Glucose,Whole Blood 307 mg/dL (75-99)
--- NOTE | 2021-08-29 18:19 | PN ---
PROGRESS NOTE DATE OF SERVICE: 08/29/2021 REASON FOR FOLLOW UP: Covid 19 pneumonia. INTERVAL HISTORY: Patient is afebrile. He is breathing slightly comfortably. The patient denies having chest pain. Did have a cough with occasional sputum production. No vomiting. No abdominal pain or diarrhea. PHYSICAL EXAMINATION: Blood pressure 146/76, pulse of temperature 97.4. He is 96% on 5 L nasal cannula. General description is a middle-aged male lying in bed in no distress. Respiratory system unlabored breathing. Coarse breath sounds at bases. No wheeze. Heart S1, S2. Regular rate and rhythm. LABS: No new labs have been obtained today. IMPRESSION/PLAN: Patient with acute Covid 19 pneumonia, patient is currently covered with Lovenox. Continues to have significant purulent sputum. We will follow up on the sputum. Repeat blood cultures and add antibiotic if needed. Continue supportive care. MMODL / IJN: [id number] /
[2021-08-29 20:45] LABS: Glucose,Whole Blood 350 mg/dL (75-99)
[2021-08-30] MEDS: INSULIN ASPART (NovoLOG) 100 UNIT/ML VIAL SQ SCH ×5 (00:18→21:23)
[2021-08-30] MEDS: INSULIN DETEMIR (LEVEMIR) 100 UNIT/ML SYR SQ SCH ×2 (00:19→21:23)
--- NOTE | 2021-08-30 06:54 | XR ---
EXAMINATION TYPE: XR chest 1V portable DATE OF EXAM: 08/30/2021 COMPARISON: 08/29/2021 HISTORY: Covid TECHNIQUE: Single frontal view of the chest is obtained. FINDINGS: There is been no interval change in the scattered partially consolidative opacities bilate rally, right greater than left. The heart size is normal and the pulmonary vasculature is not congested. There is no pneumothorax or large pleural effusion. The osseous structures are intact IMPRESSION: No interval change in the scattered partially consolidative opacities, right greater kaley n left.
[2021-08-30 06:58] LABS: Glucose,Whole Blood 152 mg/dL (75-99)
[2021-08-30 08:38] LABS: ALT 54 U/L (4-49); AST 40 U/L (17-59); African American GFR (CKD) >90 (>60 ml/min/1.73 sqM); Albumin/Globulin Ratio 0.9; Alkaline Phosphatase 121 U/L (38-126); Anion Gap 9 mmol/L; Blood Urea Nitrogen 23 mg/dL (9-20); C Reactive Protein 5.1 mg/dL (<1.0); Calcium 9.2 mg/dL (8.4-10.2); Carbon Dioxide 26 mmol/L (22-30); Chloride 104 mmol/L (98-107); Globulin 3.3 g/dL; Glucose 166 mg/dL (74-99); LDH 699 U/L (313-618); Non-African American GFR(CKD) >90 (>60 ml/min/1.73 sqM); Potassium 4.3 mmol/L (3.5-5.1); Sodium 139 mmol/L (137-145); Total Bilirubin 0.5 mg/dL (0.2-1.3); Total Protein 6.3 g/dL (6.3-8.2)
[2021-08-30] MEDS: DEXAMETHASONE SOD PHOSPHATE 10 MG/ML 1 ML VIAL IV SCH (08:42)
[2021-08-30] MEDS: ZINC SULFATE 220 MG CAP PO SCH (08:42)
[2021-08-30] MEDS: ASCORBIC ACID 500 MG TAB PO SCH (08:42)
[2021-08-30] MEDS: CHOLECALCIFEROL 25 MCG (1000 IU) TABLET PO SCH (08:42)
[2021-08-30] MEDS: ENOXAPARIN 40 MG/0.4 ML SYRINGE SQ SCH (08:43)
--- NOTE | 2021-08-30 08:59 | P.CONS ---
History of Present Illness - Reason for Consult Consult date: 08/28/21 Recent covid 19 infection Requesting physician: Constantino Diaz - Chief Complaint shortness of breath and cough x days - History of Present Illness History of present illness : Patient is 46-year-old male presenting to the ER last night for evaluation of increasing shortness of breath fatigue decreased oral intake and this patient symptom has been going on for about a week patient was diagnosed with a COVID-19 infection few days ago and has been given monoclonal antibodies however the patient mention he did have some improvement initially however started having any increasing shortness of breath over last few days patient denies having any chest pain he did have a cough moderate intensity when awake up any sputum, no hemoptysis some nausea decreased oral intake but no vomiting no abdominal pain. Diarrhea has improved, on presentation to the hospital patient did have a fever of 100.8 F patient was hypoxic with O2 sats of 86% on room air white count was normal with lymphopenia D-dimer was mildly elevated creatinine was normal AST was mildly elevated procalcitonin 0.40 patient did have a chest x-ray patchy bilateral extensive airspace pneumonia CT angiogram of the chest no evidence of PE extensive pulmonary airspace infiltrate patient was admitted to the hospital infectious disease was consulted for further management Review of system: CONSTITUTIONAL: Positive for weakness along with the fever. EYES: No complaint. ENT: No complaint. RESPIRATORY: As per history of present illness. CARDIOVASCULAR: No complaint. GENITOURINARY: No complaint. GASTROINTESTINAL: As per history of present illness. MUSCULOSKELETAL: No complaint. INTEGUMENTARY: No complaint. PSYCHOLOGIC: No complaint. ENDOCRINE: No complaint. NEUROLOGIC: No complaint. Past medical history : Reviewed, documented below Past surgical history : Reviewed, documented below Social history: Reviewed, documented below Medications: Reviewed, as documented below EXAMINATION: Vital sigans= Reviewed and documented below GENERAL DESCRIPTION: Middle-aged male lying in bed, no distress. No tachypnea or accessory muscle of respiration use. HEENT: Shows Pallor , no scleral icterus. Oral mucous membrane is dry. NECK: Trachea central, no thyromegaly. LUNGS: Unlabored breathing. Coarse breath sounds bilaterally. No wheeze or crackle. HEART: S1, S2, regular rate and rhythm. ABDOMEN: Soft, no tenderness , guarding or rigidity EXTREMITIES: No edema of feet. SKIN: No rash, no masses palpable. NEUROLOGICAL: The patient is awake, alert, oriented x3, mood and affect normal. LABS AND RADIOLOGY: Reviewed results see below Assessment : Patient presented to hospital with a increasing shortness of breath in this patient who did have a fever hypoxemia with evidence of extensive interstitial infiltrate secondary to COVID-19 pneumonia in this patient symptom has been going on since August 15. Has received monoclonal antibody, patient is currently out of the therapeutic window for remdesivir per [facility] clinic suspicion low for secondary bacterial pneumonia Plan: 1-patient to be treated with a dexamethasone Lovenox zinc and ascorbic acid 2-droplet isolation and respiratory support 3-no need for remdesivir or systemic antibiotic therapy We will follow on clinical condition and cultures to further adjust medication if needed Thank you for this consultation we will follow the patient along with you Review of Systems Positive point has been mentioned in the HPI rest of the systems are negative Past Medical History Past Medical History: Diabetes Mellitus History of Any Multi-Drug Resistant Organisms: None Reported Past Surgical History: Back Surgery Additional Past Surgical History / Comment(s): hip surgery Past Anesthesia/Blood Transfusion Reactions: No Reported Reaction Past Psychological History: No Psychological Hx Reported Smoking Status: Never smoker Past Alcohol Use History: Occasional Past Drug Use History: None Reported Medications and Allergies Home Medications Medication Instructions Recorded Confirmed Type sitaGLIPtin PHOS/metFORMIN HCL 1 tab PO AC-BID 08/28/21 08/28/21 History [Janumet 50-1,000 mg Tablet] Allergies Allergy/AdvReac Type Severity Reaction Status Date / Time No Known Allergies Allergy Verified 08/28/21 07:20 Physical Exam Vitals: Vital Signs Temp Pulse Pulse Resp BP BP Pulse Ox 08/29/21 14:00 97.4 F L 78 18 146/76 96 08/29/21 09:30 97.4 F L 86 18 125/66 93 L 08/29/21 06:42 97.2 F L 82 17 135/78 93 L 08/29/21 02:00 97.8 F 86 16 130/78 95 08/28/21 20:00 97.5 F L 94 18 137/83 94 L 08/28/21 19:20 94 17 08/28/21 19:12 97.6 F 94 17 134/89 94 L 08/28/21 17:08 80 22 132/79 93 L 08/28/21 16:05 80 20 134/85 97 Intake and Output 08/29/21 08/29/21 08/29/21 06:59 14:59 22:59 Intake Total 1015 268.091 Output Total 800 Balance 215 268.091 Intake: Intake, IV Titration 775 28.091 Amount Insulin Regular 100 unit 75 28.091 In Sodium Chloride 0.9% 100 ml @ Titrate IV .Q0M [facility] Rx#:[id number] Sodium Chloride 0.9% 1, 700 000 ml @ 100 mls/hr IV . Q10H [facility] Rx#:[id number] Oral 240 240 Output: Urine 800 Other: Voiding Method Toilet # Voids 2 Results CBC & Chem 7: 08/27/21 22:50 08/30/21 06:29 Labs: Abnormal Lab Results - Last 24 Hours (Table) 08/27/21 08/28/21 08/28/21 Range/Units 22:50 17:03 20:36 D-Dimer (<0.60) mg/L FEU POC Glucose (mg/dL) 422 H 413 H (75-99) mg/dL Hemoglobin A1c (4.0-6.0) % Lactate Dehydrogenase (313-618) U/L C-Reactive Protein (<1.0) mg/dL Procalcitonin 0.40 H (0.02-0.09) ng/mL 08/28/21 08/29/21 08/29/21 Range/Units 22:24 00:38 01:23 D-Dimer (<0.60) mg/L FEU POC Glucose (mg/dL) 396 H 367 H 331 H (75-99) mg/dL Hemoglobin A1c (4.0-6.0) % Lactate Dehydrogenase (313-618) U/L C-Reactive Protein (<1.0) mg/dL Procalcitonin (0.02-0.09) ng/mL 08/29/21 08/29/21 08/29/21 Range/Units 02:02 02:45 03:28 D-Dimer (<0.60) mg/L FEU POC Glucose (mg/dL) 282 H 256 H 287 H (75-99) mg/dL Hemoglobin A1c (4.0-6.0) % Lactate Dehydrogenase (313-618) U/L C-Reactive Protein (<1.0) mg/dL Procalcitonin (0.02-0.09) ng/mL 08/29/21 08/29/21 08/29/21 Range/Units 04:38 05:25 05:54 D-Dimer (<0.60) mg/L FEU POC Glucose (mg/dL) 229 H 260 H (75-99) mg/dL Hemoglobin A1c 8.4 H (4.0-6.0) % Lactate Dehydrogenase (313-618) U/L C-Reactive Protein (<1.0) mg/dL Procalcitonin (0.02-0.09) ng/mL 08/29/21 08/29/21 08/29/21 Range/Units 06:18 06:29 06:29 D-Dimer 1.53 H (<0.60) mg/L FEU POC Glucose (mg/dL) 243 H (75-99) mg/dL Hemoglobin A1c (4.0-6.0) % Lactate Dehydrogenase 690 H (313-618) U/L C-Reactive Protein 8.7 H (<1.0) mg/dL Procalcitonin (0.02-0.09) ng/mL 08/29/21 08/29/21 08/29/21 Range/Units 07:02 07:57 10:13 D-Dimer (<0.60) mg/L FEU POC Glucose (mg/dL) 238 H 202 H 190 H (75-99) mg/dL Hemoglobin A1c (4.0-6.0) % Lactate Dehydrogenase (313-618) U/L C-Reactive Protein (<1.0) mg/dL Procalcitonin (0.02-0.09) ng/mL 08/29/21 08/29/21 Range/Units 11:44 14:00 D-Dimer (<0.60) mg/L FEU POC Glucose (mg/dL) 254 H 251 H (75-99) mg/dL Hemoglobin A1c (4.0-6.0) % Lactate Dehydrogenase (313-618) U/L C-Reactive Protein (<1.0) mg/dL Procalcitonin (0.02-0.09) ng/mL Microbiology - Last 24 Hours (Table) 08/28/21 02:19 Blood Culture - Preliminary Blood No Growth after 24 hours 08/28/21 02:19 Blood Culture - Preliminary Blood No Growth after 24 hours
[2021-08-30] MEDS: ALBUTEROL HFA INHALER INHALATION SCH ×4 (09:31→19:21)
[2021-08-30 11:38] LABS: Glucose,Whole Blood 190 mg/dL (75-99)
[2021-08-30] MEDS: SODIUM CHLORIDE 0.9% 1,000 ML IV SCH (12:16)
[2021-08-30 13:06] LABS: Basophils # (A) 0.02 X 10*3/uL (0.00-0.10); Basophils % (A) 0.2 %; Chol/HDL Ratio 6.05 Ratio; Eosinophils # (A) 0.05 X 10*3/uL (0.04-0.35); Eosinophils % (A) 0.4 %; HCT 43.4 % (39.6-50.0); HGB 14.3 g/dL (13.0-17.0); LDL Cholesterol,Calculated 76.4 mg/dL (0.0-131.0); Lymphocytes # (A) 0.92 X 10*3/uL (0.90-5.00); Lymphocytes % (A) 7.3 %; MCH 29.1 pg (27.0-32.0); MCHC 32.9 g/dL (32.0-37.0); MCV 88.2 fL (80.0-97.0); Mean Platelet Volume 10.9 fL (9.5-12.2); Monocytes # (A) 0.77 X 10*3/uL (0.20-1.00); Monocytes % (A) 6.1 %; Neutrophils # (A) 10.47 X 10*3/uL (1.80-7.70); Neutrophils % (A) 83.6 %; Platelet Count 515 X 10*3/uL (140-440); RBC 4.92 X 10*6/uL (4.40-5.60); RDW 12.1 % (11.5-14.5); WBC 12.53 X 10*3/uL (4.50-10.00)
--- NOTE | 2021-08-30 14:28 | P.PN ---
Subjective Progress Note Date: 08/30/21 Principal diagnosis: Coronavirus associated pneumonia. 46-year-old white male patient with past medical history of diabetes mellitus, never smoker, chronic back pain, patient is not vaccinated against COVID-19, who came into the emergency department on 08/27/2021 for evaluation of shortness of breath, fatigue, decreased oral intake, vomiting. He states he was recently diagnosed with COVID-19, he had a positive COVID-19 test on August 19. His symptoms started a week prior to that around August 15. His is also COVID positive. However she is less than him, yesterday he noted he was more short of breath, very weak, and his pulse ox was down to 78-84% on room air, called EMS. Patient states that he did receive the monoclonal antibody treatment a couple days ago however has continued to feel worse. His chest x-ray on 08/27/2021 shows patchy bilateral extensive airspace pneumonia. He was satting 86% on room air in the emergency department, he had a low-grade fever with a temp of 100.8F, he is currently up to 6 L on supplemental oxygen, his pulse ox is 92%, his blood work in the emergency department shows white blood cell count 10.4, hemoglobin of 15.3, full code is 8.4, lymphocyte count 0.7, d-dimer is 1.39, sodium is 132, the rest of electrolytes were unremarkable, plasma lactic acid was 1.3, AST and ALT were 48 and 39, alkaline phosphatase was 156, troponin was less than 0.012, proBNP was normal at 64. CTA chest has been completed showing no evidence of pulmonary embolism, it did show extensive pulmonary airspace infiltrates. EKG showed normal sinus rhythm. Patient was given a liter and a fluid bolus with 0.9 normal saline, his maintenance IVs currently is at 100 ML per hour, he was started on IV Lovenox 6 mg daily, with initial dose of 10 mg IV push in the emergency department, his Lovenox dose is 60 mg twice daily however there is no evidence of PE. Pro-calcitonin level has been sent and is pending, blood cultures have been sent. On 08/29/2021 patient is seen in follow-up on medical surgical floor, he is currently on 5 L of oxygen, does not appear to be in any acute distress, he does have exertional dyspnea, but he was able to get up in the shower today. Pulse ox on 5 L of oxygen was 93-95%, he was afebrile, hemodynamically has been stable. CTA chest showed no evidence of pulmonary embolism. His lower extremity Dopplers were negative for DVT. Patient is Lovenox 40 mg once daily, he is on IV hydration with 0.9 normal saline at a rate of 100 ML per hour. He remains on Decadron 6 mg daily. Pro-calcitonin level was 0.40, LDH was 690, and CRP was 8.7. D-dimer was 1.53. Patient has been started on insulin infusion at 5 units per hour for hyperglycemia. He remains on Decadron 6 mg daily, he is on COVID-19 vitamins. His antibiotics have been discontinued in view of negative pro-calcitonin. Overall she is feeling better, his had no fevers overnight. Progress note dated 08/30/2021. 46-year-old male, again seen in room 485. He was admitted with a diagnosis of acute hypoxemic respiratory failure, secondary to coronavirus pneumonia. The patient's doing a bit better today than yesterday. He also has a history of diabetes, is a lifelong nonsmoker, and did have a computed tomography scan of the chest which was negative for pulmonary embolism. He also has a history of mild hyponatremia. He is currently on 6 L nasal cannula. Saturations 91%. White count 12.53, hemoglobin 14.3, hematocrit 43.4, platelet count 515,000. D- dimer is 1.66. Sodium 139, potassium 4.3, chlorides 104, CO2 26, anion gap 9, BUN 23, and creatinine 0.84. LDH is 699. C-reactive protein is 5.1. Chest x- ray continues to show bilateral diffuse infiltrates consistent with coronavirus pneumonia. Objective - Vital Signs Vital signs: Vital Signs Temp 97.6 F 08/30/21 09:48 Pulse 101 H 08/30/21 09:48 Resp 18 08/30/21 09:48 BP 135/72 08/30/21 09:48 Pulse Ox 91 L 08/30/21 09:48 Intake & Output 08/29/21 08/30/21 08/30/21 18:59 06:59 18:59 Intake Total 282.074 800 Balance 282.074 800 Intake: Intake, IV Titration 42.074 Amount Insulin Regular 100 unit 42.074 In Sodium Chloride 0.9% 100 ml @ Titrate IV .Q0M [facility] Rx#:[id number] Oral 240 800 Other: Voiding Method Toilet Toilet Toilet # Voids 2 3 - Exam No acute distress, oriented 3. Mild respiratory difficulty. Currently on nasal O2 6 L. HEENT examination is grossly unremarkable. Neck supple. Full range of motion. No adenopathy thyromegaly or neck vein distention. Cardiovascular examination reveals regular rhythm rate. S1-S2 normal. No S3 or S4. No discernible murmur noted. Heart rate 100 bpm. Heart sounds are distant. Lungs reveal coarse bilateral inspiratory and expiratory rhonchi. Basilar crackles are noted. No wheezes. Breath sounds equal bilaterally. Abdomen soft bowel sounds are heard. No masses or tenderness. Extremities are intact. No cyanosis clubbing or edema. Skin is without rash or lesion. Neurologic examination is brief but nonfocal. - Labs CBC & Chem 7: 08/30/21 06:29 08/30/21 06:29 Labs: Abnormal Lab Results - Last 24 Hours (Table) 08/29/21 08/29/21 08/29/21 Range/Units 16:02 18:07 20:43 WBC (4.50-10.00) X 10*3/uL Plt Count (140-440) X 10*3/uL Immature Gran # (0.00-0.04) X 10*3/uL Neutrophils # (1.80-7.70) X 10*3/uL D-Dimer (<0.60) mg/L FEU BUN (9-20) mg/dL Glucose (74-99) mg/dL POC Glucose (mg/dL) 216 H 307 H 350 H (75-99) mg/dL ALT (4-49) U/L Lactate Dehydrogenase (313-618) U/L C-Reactive Protein (<1.0) mg/dL Albumin (3.5-5.0) g/dL Triglycerides (0.00-149.00) mg/dL HDL Cholesterol (40.00-60.00) mg/dL 08/30/21 08/30/21 08/30/21 Range/Units 06:29 06:29 06:29 WBC 12.53 H (4.50-10.00) X 10*3/uL Plt Count 515 H (140-440) X 10*3/uL Immature Gran # 0.30 H (0.00-0.04) X 10*3/uL Neutrophils # 10.47 H (1.80-7.70) X 10*3/uL D-Dimer 1.66 H (<0.60) mg/L FEU BUN 23 H (9-20) mg/dL Glucose 166 H (74-99) mg/dL POC Glucose (mg/dL) (75-99) mg/dL ALT 54 H (4-49) U/L Lactate Dehydrogenase 699 H (313-618) U/L C-Reactive Protein 5.1 H (<1.0) mg/dL Albumin 3.0 L (3.5-5.0) g/dL Triglycerides 173.00 H (0.00-149.00) mg/dL HDL Cholesterol 22.00 L (40.00-60.00) mg/dL 08/30/21 08/30/21 Range/Units 06:53 11:31 WBC (4.50-10.00) X 10*3/uL Plt Count (140-440) X 10*3/uL Immature Gran # (0.00-0.04) X 10*3/uL Neutrophils # (1.80-7.70) X 10*3/uL D-Dimer (<0.60) mg/L FEU BUN (9-20) mg/dL Glucose (74-99) mg/dL POC Glucose (mg/dL) 152 H 190 H (75-99) mg/dL ALT (4-49) U/L Lactate Dehydrogenase (313-618) U/L C-Reactive Protein (<1.0) mg/dL Albumin (3.5-5.0) g/dL Triglycerides (0.00-149.00) mg/dL HDL Cholesterol (40.00-60.00) mg/dL Microbiology - Last 24 Hours (Table) 08/28/21 02:19 Blood Culture - Preliminary Blood No Growth after 48 hours 08/28/21 02:19 Blood Culture - Preliminary Blood No Growth after 48 hours 08/29/21 08:54 Gram Stain - Preliminary Sputum Sputum Culture - Preliminary Assessment and Plan Assessment: #1. Acute hypoxic respiratory failure related to acute COVID-19 pneumonia, with onset of symptoms 2 weeks prior to the presentation. Patient is not vaccinated for COVID-19. He had a positive COVID-19 test on August 19, 2021. Patient status post monoclonal antibody infusion on an outpatient basis . Not a candidate for Remdesivir at this time, we'll continue with Decadron and prophy lactic anticoagulation, CTA chest showed no evidence of pulmonary embolism. #2. Elevated d-dimer, CTA chest negative for pulmonary embolism. #3. Mild hyponatremia, with a serum sodium of 132, related to dehydration. Patient reports poor oral intake and nausea and vomiting at home. #4. Diabetes mellitus type 2. #5. Nonsmoker. Plan: Plan dated 08/30/2021. Currently, the patient is relatively stable. The patient remains on 6 L nasal O2. He is receiving albuterol inhaler, vitamin C, vitamin D3, zinc, Decadron, and Lovenox. The patient's CT angiogram was negative for pulmonary embolism. He to follow make recommendations where appropriate. Prognosis remains guarded. Time with Patient: Less than 30
--- NOTE | 2021-08-30 15:42 | P.PN ---
Progress Note - Text Progress Note Date: 08/30/21 Chief Complaint: Shortness of breath This is a 46-year-old patient who follows with Dr. Jones. Patient is a known diabetic. Patient is not vaccinated against COVID 19. Patient's had respiratory symptoms that started closer 2 weeks ago. Symptoms have been progressive. Increase in shortness of breath. Cough. Fever or chills. No diarrhea. Decrease in taste and smell. Nausea. Poor appetite. Patient's also got the COVID 19. 4 days ago patient did receive the antibodies. Symptoms have been worsening has decided to come in. Pulse ox was 86% on room air upon presentation. Admitted with COVID 19 pneumonitis, acute hypoxic respiratory failure. Started on dexamethasone and supportive care, oxygen. 08/29/2021: In bed. Short of breath. Congested cough. Decrease appetite. Accu-Cheks running into 400 yesterday evening. Started on insulin drip. Oral intake about 50-75% 08/30/2021: Laying in bed. Tired. Some coughing. Eating some. Patient on Levemir started yesterday. Review of systems: Was done for constitutional, cardiovascular, GI, pulmonary. relevant finding as above Active Medications Al Hydroxide/Mg Hydroxide (Mag Hydrox/Al Hydrox/Simeth 30 Ml Cup) 15 ml PO Q6HR PRN PRN Reason: Indigestion Albuterol Sulfate (Albuterol Nebulized 2.5 Mg/3 Ml) 2.5 mg INHALATION RT-Q4H PRN PRN Reason: Dyspnea Albuterol Sulfate (Albuterol Hfa Inhaler) 3 puff INHALATION RT-QID [facility] Last Admin: 08/30/21 12:36 Dose: 3 puff Documented by: Ascorbic Acid (Ascorbic Acid 500 Mg Tab) 500 mg PO DAILY [facility] Last Admin: 08/30/21 08:42 Dose: 500 mg Documented by: Calcium Carbonate/Glycine (Calcium Carbonate 500 Mg Chewable) 1,000 mg PO Q4HR PRN PRN Reason: Dyspepsia Cholecalciferol (Cholecalciferol 25 Mcg (1000 Iu) Tablet) 100 mcg PO DAILY [facility] Last Admin: 08/30/21 08:42 Dose: 100 mcg Documented by: Dexamethasone Sodium Phosphate (Dexamethasone Sod Phosphate 10 Mg/Ml 1 Ml Vial) 6 mg IV DAILY [facility] Last Admin: 08/30/21 08:42 Dose: 6 mg Documented by: Enoxaparin Sodium (Enoxaparin 40 Mg/0.4 Ml Syringe) 40 mg SQ DAILY [facility] Last Admin: 08/30/21 08:43 Dose: 40 mg Documented by: Sodium Chloride (Saline 0.9%) 1,000 mls @ 50 mls/hr IV .Q20H [facility] Last Admin: 08/30/21 12:16 Dose: Not Given Documented by: Insulin Aspart (Insulin Aspart (Novolog) 100 Unit/Ml Vial) 0 unit SQ ACHS [facility]; Protocol Last Admin: 08/30/21 12:13 Dose: 2 unit Documented by: Insulin Detemir (Insulin Detemir (Levemir) 100 Unit/Ml Syr) 30 unit SQ HS [facility] Last Admin: 08/30/21 00:19 Dose: 30 unit Documented by: Melatonin (Melatonin 3 Mg Tablet) 3 mg PO HS PRN PRN Reason: Insomnia Miscellaneous Information (Pneumonia Protocol Utilized 1 Each Misc) 1 each PO ONCE PRN PRN Reason: Per Protocol Naloxone HCl (Naloxone 0.4 Mg/Ml 1 Ml Vial) 0.2 mg IV Q2M PRN PRN Reason: Opioid Reversal Ondansetron HCl (Ondansetron 4 Mg/2 Ml Vial) 4 mg IVP Q8HR PRN PRN Reason: Nausea And Vomiting Zinc Sulfate (Zinc Sulfate 220 Mg Cap) 220 mg PO DAILY [facility] Last Admin: 08/30/21 08:42 Dose: 220 mg Documented by: Past medical history to include: Diabetes mellitus type 2 Social history: . 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 Conjunctiva normal. HEENT: External appearance of nose and ears normal, oral cavity grossly normal. PSYCH: Alert and oriented x3; mood and affect anxious. NEUROLOGICAL: Cranial nerves grossly intact; no facial asymmetry, moving all 4 limbs Rest of exam per pulmonary and nursing INVESTIGATIONS, reviewed in the clinical context: August: White count 12.5 hemoglobin 14.3 platelets 505 potassium 4.3 crit and 0.84 d-dimer 1.66 LDL 76 August 29: D-dimer 1.53 HbA1c 690 CRP 8.7 WBC 10.4 hemoglobin 15.3 platelets 400 d-dimer 1.39 sodium 132 potassium 4.7 BUN 18 creatinine 0.85 troponin I less than 0.012 EKG tracing personally reviewed by me-normal sinus rhythm Chest x-ray film personally reviewed by me-bilateral scattered infiltrates Computed tomography scan of chest angina for PE: Negative for PE. Extensive pulmonary airspace infiltrates Assessment and plan: -Acute bilateral severe pneumonitis/COVID 19, in a non-vaccinated patient. Received antibody treatment 4 days prior to admission: Slow to respond Lovenox subcu day, oxygen supplementation, vitamin C, vitamin D, zinc sulfate, IV Decadron. -Acute hypoxic respiratory failure from COVID 19: Not improving On 5 L of nasal cannula -Diabetes mellitus type 2 on oral hypoglycemic: Uncontrolled with hyperglycemia HbA1c 8.4 IV Levemir 30 units -Mild hyponatremia from decreased solute intake -Hypoalbuminemia, acute phase reactant Oxygen supplementation, IV Decadron, subcu Lovenox,. Sliding scale to continue. Discussed with patient
[2021-08-30 16:58] LABS: Glucose,Whole Blood 390 mg/dL (75-99)
--- NOTE | 2021-08-30 18:18 | PN ---
PROGRESS NOTE DATE OF SERVICE: 08/30/2021 REASON FOR FOLLOWUP: COVID-19 pneumonia. INTERVAL HISTORY: The patient is afebrile. The patient is feeling better, breathing more comfortably. He is currently on 5 L nasal cannula. The patient denies having any chest pain or any worsening cough. No abdominal pain or diarrhea. PHYSICAL EXAMINATION: Blood pressure 129/75 with a pulse of 98, temperature 97.5. He is % on 5 L nasal cannula. General description is a middle-aged male lying in bed in no distress. RESPIRATORY SYSTEM: Unlabored breathing. Decreased intensity of breath sounds. No wheeze. HEART: S1, S2. Regular rate and rhythm. ABDOMEN: Soft. No tenderness. LABS: Hemoglobin is 14.3, white count 12.53. Creatinine is 0.84. Sputum has been negative so far. Blood culture negative. DIAGNOSTIC IMPRESSION AND PLAN: Patient with acute COVID-19 pneumonia, slowly clinically improving. Patient is currently covered with dexamethasone, Lovenox, zinc, ascorbic acid; to continue along with respiratory support and monitor his clinical course closely. MMODL / IJN: [id number] /
[2021-08-30 20:52] LABS: Glucose,Whole Blood 356 mg/dL (75-99)
[2021-08-31 06:51] LABS: Basophils % (A) 0 %; Eosinophils # (A) 0.1 k/uL (0-0.7); Eosinophils % (A) 1 %; HCT 41.8 % (39.0-53.0); HGB 13.8 gm/dL (13.0-17.5); Lymphocytes # (A) 1.3 k/uL (1.0-4.8); Lymphocytes % (A) 12 %; MCH 29.5 pg (25.0-35.0); MCHC 32.9 g/dL (31.0-37.0); MCV 89.6 fL (80.0-100.0); Mean Platelet Volume 8.4; Monocytes # (A) 0.9 k/uL (0-1.0); Monocytes % (A) 8 %; Neutrophils # (A) 7.9 k/uL (1.3-7.7); Neutrophils % (A) 75 %; Platelet Count 476 k/uL (150-450); RBC 4.67 m/uL (4.30-5.90); RDW 12.2 % (11.5-15.5); WBC 10.4 k/uL (3.8-10.6)
[2021-08-31 07:03] LABS: Glucose,Whole Blood 119 mg/dL (75-99)
[2021-08-31] MEDS: INSULIN ASPART (NovoLOG) 100 UNIT/ML VIAL SQ SCH ×4 (07:11→22:07)
[2021-08-31] MEDS: ALBUTEROL HFA INHALER INHALATION SCH ×4 (07:53→19:59)
[2021-08-31 08:32] LABS: African American GFR (CKD) >90 (>60 ml/min/1.73 sqM); Anion Gap 10 mmol/L; Blood Urea Nitrogen 18 mg/dL (9-20); Carbon Dioxide 24 mmol/L (22-30); Chloride 102 mmol/L (98-107); Glucose 161 mg/dL (74-99); Non-African American GFR(CKD) >90 (>60 ml/min/1.73 sqM); Potassium 4.5 mmol/L (3.5-5.1); Sodium 136 mmol/L (137-145)
[2021-08-31] MEDS: ASCORBIC ACID 500 MG TAB PO SCH (08:32)
[2021-08-31] MEDS: CHOLECALCIFEROL 25 MCG (1000 IU) TABLET PO SCH (08:32)
[2021-08-31] MEDS: ENOXAPARIN 40 MG/0.4 ML SYRINGE SQ SCH (08:32)
[2021-08-31] MEDS: ZINC SULFATE 220 MG CAP PO SCH (08:32)
[2021-08-31] MEDS: DEXAMETHASONE SOD PHOSPHATE 10 MG/ML 1 ML VIAL IV SCH (08:32)
[2021-08-31 11:43] LABS: Glucose,Whole Blood 273 mg/dL (75-99)
--- NOTE | 2021-08-31 14:08 | P.PN ---
Progress Note - Text Progress Note Date: 08/31/21 Chief Complaint: Shortness of breath This is a 46-year-old patient who follows with Dr. Jones. Patient is a known diabetic. Patient is not vaccinated against COVID 19. Patient's had respiratory symptoms that started closer 2 weeks ago. Symptoms have been progressive. Increase in shortness of breath. Cough. Fever or chills. No diarrhea. Decrease in taste and smell. Nausea. Poor appetite. Patient's also got the COVID 19. 4 days ago patient did receive the antibodies. Symptoms have been worsening has decided to come in. Pulse ox was 86% on room air upon presentation. Admitted with COVID 19 pneumonitis, acute hypoxic respiratory failure. Started on dexamethasone and supportive care, oxygen. 08/29/2021: In bed. Short of breath. Congested cough. Decrease appetite. Accu-Cheks running into 400 yesterday evening. Started on insulin drip. Oral intake about 50-75% 08/30/2021: Laying in bed. Tired. Some coughing. Eating some. Patient on Levemir started yesterday. 08/31/2021: Up in a chair. Oral intake fair. On 5 L of nasal cannula. Some shortness of breath and cough. Review of systems: Was done for constitutional, cardiovascular, GI, pulmonary. relevant finding as above Active Medications Al Hydroxide/Mg Hydroxide (Mag Hydrox/Al Hydrox/Simeth 30 Ml Cup) 15 ml PO Q6HR PRN PRN Reason: Indigestion Albuterol Sulfate (Albuterol Nebulized 2.5 Mg/3 Ml) 2.5 mg INHALATION RT-Q4H PRN PRN Reason: Dyspnea Albuterol Sulfate (Albuterol Hfa Inhaler) 3 puff INHALATION RT-QID [facility] Last Admin: 08/31/21 12:14 Dose: 3 puff Documented by: Ascorbic Acid (Ascorbic Acid 500 Mg Tab) 500 mg PO DAILY [facility] Last Admin: 08/31/21 08:32 Dose: 500 mg Documented by: Calcium Carbonate/Glycine (Calcium Carbonate 500 Mg Chewable) 1,000 mg PO Q4HR PRN PRN Reason: Dyspepsia Cholecalciferol (Cholecalciferol 25 Mcg (1000 Iu) Tablet) 100 mcg PO DAILY [facility] Last Admin: 08/31/21 08:32 Dose: 100 mcg Documented by: Dexamethasone Sodium Phosphate (Dexamethasone Sod Phosphate 10 Mg/Ml 1 Ml Vial) 6 mg IV DAILY [facility] Last Admin: 08/31/21 08:32 Dose: 6 mg Documented by: Enoxaparin Sodium (Enoxaparin 40 Mg/0.4 Ml Syringe) 40 mg SQ DAILY [facility] Last Admin: 08/31/21 08:32 Dose: 40 mg Documented by: Insulin Aspart (Insulin Aspart (Novolog) 100 Unit/Ml Vial) 0 unit SQ ACHS [facility]; Protocol Last Admin: 08/31/21 12:16 Dose: 4 unit Documented by: Insulin Detemir (Insulin Detemir (Levemir) 100 Unit/Ml Syr) 30 unit SQ HS [facility] Last Admin: 08/30/21 21:23 Dose: 30 unit Documented by: Linagliptin (Linagliptin 5 Mg Tablet) 5 mg PO DAILY@0730 [facility] Melatonin (Melatonin 3 Mg Tablet) 3 mg PO HS PRN PRN Reason: Insomnia Metformin HCl (Metformin 500 Mg Tab) 1,000 mg PO BID-W/MEALS [facility] Miscellaneous Information (Pneumonia Protocol Utilized 1 Each Misc) 1 each PO ONCE PRN PRN Reason: Per Protocol Naloxone HCl (Naloxone 0.4 Mg/Ml 1 Ml Vial) 0.2 mg IV Q2M PRN PRN Reason: Opioid Reversal Ondansetron HCl (Ondansetron 4 Mg/2 Ml Vial) 4 mg IVP Q8HR PRN PRN Reason: Nausea And Vomiting Zinc Sulfate (Zinc Sulfate 220 Mg Cap) 220 mg PO DAILY [facility] Last Admin: 08/31/21 08:32 Dose: 220 mg Documented by: Past medical history to include: Diabetes mellitus type 2 Social history: . Does not smoke. 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 Conjunctiva normal. HEENT: External appearance of nose and ears normal, oral cavity grossly normal. PSYCH: Alert and oriented x3; mood and affect anxious. NEUROLOGICAL: Cranial nerves grossly intact; no facial asymmetry, moving all 4 limbs Rest of exam per pulmonary and nursing INVESTIGATIONS, reviewed in the clinical context: August 31: WBC 10.4 d-dimer 2.27 potassium 4.5 CRP 5 August 30: White count 12.5 hemoglobin 14.3 platelets 505 potassium 4.3 crit and 0.84 d-dimer 1.66 LDL 76 August 29: D-dimer 1.53 HbA1c 690 CRP 8.7 WBC 10.4 hemoglobin 15.3 platelets 400 d-dimer 1.39 sodium 132 potassium 4.7 BUN 18 creatinine 0.85 troponin I less than 0.012 EKG tracing personally reviewed by me-normal sinus rhythm Chest x-ray film personally reviewed by me-bilateral scattered infiltrates Computed tomography scan of chest angina for PE: Negative for PE. Extensive pulmonary airspace infiltrates Assessment and plan: -Acute bilateral severe pneumonitis/COVID 19, in a non-vaccinated patient. Received antibody treatment 4 days prior to admission: Slow to respond Lovenox subcu day, oxygen supplementation, vitamin C, vitamin D, zinc sulfate, IV Decadron. -Acute hypoxic respiratory failure from COVID 19: Slow to respond On 5 L of nasal cannula -Diabetes mellitus type 2 on oral hypoglycemic: Uncontrolled with hyperglycemia HbA1c 8.4 IV Levemir 30 units -Mild hyponatremia from decreased solute intake -Hypoalbuminemia, acute phase reactant Oxygen supplementation, IV Decadron, subcu Lovenox,. Sliding scale to continue. Discussed with patient
--- NOTE | 2021-08-31 14:14 | P.PN ---
Subjective Progress Note Date: 08/31/21 Principal diagnosis: Coronavirus associated pneumonia. 46-year-old white male patient with past medical history of diabetes mellitus, never smoker, chronic back pain, patient is not vaccinated against COVID-19, who came into the emergency department on 08/27/2021 for evaluation of shortness of breath, fatigue, decreased oral intake, vomiting. He states he was recently diagnosed with COVID-19, he had a positive COVID-19 test on August 19. His symptoms started a week prior to that around August 15. His is also COVID positive. However she is less than him, yesterday he noted he was more short of breath, very weak, and his pulse ox was down to 78-84% on room air, called EMS. Patient states that he did receive the monoclonal antibody treatment a couple days ago however has continued to feel worse. His chest x-ray on 08/27/2021 shows patchy bilateral extensive airspace pneumonia. He was satting 86% on room air in the emergency department, he had a low-grade fever with a temp of 100.8F, he is currently up to 6 L on supplemental oxygen, his pulse ox is 92%, his blood work in the emergency department shows white blood cell count 10.4, hemoglobin of 15.3, full code is 8.4, lymphocyte count 0.7, d-dimer is 1.39, sodium is 132, the rest of electrolytes were unremarkable, plasma lactic acid was 1.3, AST and ALT were 48 and 39, alkaline phosphatase was 156, troponin was less than 0.012, proBNP was normal at 64. CTA chest has been completed showing no evidence of pulmonary embolism, it did show extensive pulmonary airspace infiltrates. EKG showed normal sinus rhythm. Patient was given a liter and a fluid bolus with 0.9 normal saline, his maintenance IVs currently is at 100 ML per hour, he was started on IV Lovenox 6 mg daily, with initial dose of 10 mg IV push in the emergency department, his Lovenox dose is 60 mg twice daily however there is no evidence of PE. Pro-calcitonin level has been sent and is pending, blood cultures have been sent. On 08/29/2021 patient is seen in follow-up on medical surgical floor, he is currently on 5 L of oxygen, does not appear to be in any acute distress, he does have exertional dyspnea, but he was able to get up in the shower today. Pulse ox on 5 L of oxygen was 93-95%, he was afebrile, hemodynamically has been stable. CTA chest showed no evidence of pulmonary embolism. His lower extremity Dopplers were negative for DVT. Patient is Lovenox 40 mg once daily, he is on IV hydration with 0.9 normal saline at a rate of 100 ML per hour. He remains on Decadron 6 mg daily. Pro-calcitonin level was 0.40, LDH was 690, and CRP was 8.7. D-dimer was 1.53. Patient has been started on insulin infusion at 5 units per hour for hyperglycemia. He remains on Decadron 6 mg daily, he is on COVID-19 vitamins. His antibiotics have been discontinued in view of negative pro-calcitonin. Overall she is feeling better, his had no fevers overnight. Progress note dated 08/30/2021. 46-year-old male, again seen in room 485. He was admitted with a diagnosis of acute hypoxemic respiratory failure, secondary to coronavirus pneumonia. The patient's doing a bit better today than yesterday. He also has a history of diabetes, is a lifelong nonsmoker, and did have a computed tomography scan of the chest which was negative for pulmonary embolism. He also has a history of mild hyponatremia. He is currently on 6 L nasal cannula. Saturations 91%. White count 12.53, hemoglobin 14.3, hematocrit 43.4, platelet count 515,000. D- dimer is 1.66. Sodium 139, potassium 4.3, chlorides 104, CO2 26, anion gap 9, BUN 23, and creatinine 0.84. LDH is 699. C-reactive protein is 5.1. Chest x- ray continues to show bilateral diffuse infiltrates consistent with coronavirus pneumonia. Progress note dated 08/31/2021. 46-year-old male, again seen in room 485. He was admitted with a diagnosis of acute hypoxemic respiratory failure secondary to coronavirus pneumonia. According to his nurse and the patient, the patient is doing better today. Feels much less short of breath than yesterday. Currently, his vital signs are stable and his 5 L saturation is 94%. Respiratory rate 18 heart rate 86 and temperature 97.9. Blood pressure is 132/78. White count 10.4, hemoglobin 13.8, hematocrit 41.8, platelet count 476,000. D-dimer is 2.27. Sodium 136, potassium 4.5, chlorides 102, CO2 24, anion gap 10, BUN 18, and creatinine 0.75. C-reactive protein is 5. Chest x-ray from yesterday shows diffuse bilateral infiltrates, right greater than left. His chest x-rays essentially unchanged. Objective - Vital Signs Vital signs: Vital Signs Temp 97.9 F 08/31/21 09:52 Pulse 86 08/31/21 09:52 Resp 18 08/31/21 09:52 BP 132/78 08/31/21 09:52 Pulse Ox 94 L 08/31/21 09:52 Intake & Output 08/30/21 08/31/21 08/31/21 18:59 06:59 18:59 Intake Total 1890 800 Balance 1890 800 Intake: Intake, IV Titration 450 Amount Sodium Chloride 0.9% 1, 450 000 ml @ 50 mls/hr IV . Q20H [facility] Rx#:[id number] Oral 1440 800 Other: Voiding Method Toilet Toilet Toilet # Voids 2 - Exam No acute distress, oriented 3. Mild respiratory difficulty. Currently on nasal O2 5 L. HEENT examination is grossly unremarkable. Neck supple. Full range of motion. No adenopathy thyromegaly or neck vein distention. Cardiovascular examination reveals regular rhythm rate. S1-S2 normal. No S3 or S4. No discernible murmur noted. Heart rate 86 bpm. Heart sounds are distant. Lungs reveal coarse bilateral inspiratory and expiratory rhonchi. Basilar crackles are noted. No wheezes. Breath sounds equal bilaterally. Abdomen soft bowel sounds are heard. No masses or tenderness. Extremities are intact. No cyanosis clubbing or edema. Skin is without rash or lesion. Neurologic examination is brief but nonfocal. - Labs CBC & Chem 7: 08/31/21 05:24 08/31/21 05:24 Labs: Abnormal Lab Results - Last 24 Hours (Table) 08/30/21 08/30/21 08/31/21 Range/Units 16:56 20:51 05:24 Plt Count 476 H (150-450) k/uL Neutrophils # 7.9 H (1.3-7.7) k/uL D-Dimer (<0.60) mg/L FEU Sodium (137-145) mmol/L Glucose (74-99) mg/dL POC Glucose (mg/dL) 390 H 356 H (75-99) mg/dL C-Reactive Protein (<1.0) mg/dL 08/31/21 08/31/21 08/31/21 Range/Units 05:24 05:24 06:57 Plt Count (150-450) k/uL Neutrophils # (1.3-7.7) k/uL D-Dimer 2.27 H (<0.60) mg/L FEU Sodium 136 L (137-145) mmol/L Glucose 161 H (74-99) mg/dL POC Glucose (mg/dL) 119 H (75-99) mg/dL C-Reactive Protein 5.0 H (<1.0) mg/dL 08/31/21 Range/Units 11:40 Plt Count (150-450) k/uL Neutrophils # (1.3-7.7) k/uL D-Dimer (<0.60) mg/L FEU Sodium (137-145) mmol/L Glucose (74-99) mg/dL POC Glucose (mg/dL) 273 H (75-99) mg/dL C-Reactive Protein (<1.0) mg/dL Microbiology - Last 24 Hours (Table) 08/29/21 08:54 Gram Stain - Final Sputum Sputum Culture - Final 08/28/21 02:19 Blood Culture - Preliminary Blood No Growth after 72 hours 08/28/21 02:19 Blood Culture - Preliminary Blood No Growth after 72 hours Assessment and Plan Assessment: #1. Acute hypoxic respiratory failure related to acute COVID-19 pneumonia, with onset of symptoms 2 weeks prior to the presentation. Patient is not vaccinated for COVID-19. He had a positive COVID-19 test on August 19, 2021. Patient status post monoclonal antibody infusion on an outpatient basis . Not a candidate for Remdesivir at this time, we'll continue with Decadron and prophylactic anticoagulation, CTA chest showed no evidence of pulmonary embolism. #2. Elevated d-dimer, CTA chest negative for pulmonary embolism. #3. Mild hyponatremia, with a serum sodium of 132, related to dehydration. Patient reports poor oral intake and nausea and vomiting at home. #4. Diabetes mellitus type 2. #5. Nonsmoker. Plan: Plan dated 08/30/2021. Currently, the patient is relatively stable. The patient remains on 6 L nasal O2. He is receiving albuterol inhaler, vitamin C, vitamin D3, zinc, Decadron, and Lovenox. The patient's CT angiogram was negative for pulmonary embolism. He to follow make recommendations where appropriate. Prognosis remains guarded. Plan dated 08/31/2021. Currently, the patient apparently feels better today than yesterday. He remains on both dexamethasone and Lovenox. In addition, he is getting vitamin C, D3, and zinc. Also, the patient is getting an albuterol inhaler. We will continue to follow make recommendations where appropriate. CT angiogram was negative for pulmonary embolism. The most recent chest x-ray from yesterday shows no change. Clinically though, he does feel better, and his oxygen requirements have gone down a bit. Time with Patient: Less than 30
[2021-08-31 16:36] LABS: Glucose,Whole Blood 423 mg/dL (75-99)
[2021-08-31] MEDS: metFORMIN 500 MG TAB PO SCH (17:01)
[2021-08-31 20:28] LABS: Glucose,Whole Blood 376 mg/dL (75-99)
[2021-08-31] MEDS: INSULIN DETEMIR (LEVEMIR) 100 UNIT/ML SYR SQ SCH (22:08)
--- NOTE | 2021-09-01 00:02 | PN ---
PROGRESS NOTE DATE OF SERVICE: REASON FOR FOLLOW UP: Nineteen pneumonia. INTERVAL HISTORY: Patient is afebrile. The patient is breathing comfortably, down to 5 L nasal cannula. The patient denies having any chest pain. Occasional cough. No abdominal pain. No diarrhea. PHYSICAL EXAMINATION: Blood pressure 136/83 with a pulse of 90, temperature 97.7. He is 97% on 5 L nasal cannula. General description is a middle-aged male lying in bed in no distress. Respiratory system: Unlabored breathing, clear to auscultation anteriorly. Heart S1, S2. Regular rate and rhythm. Abdomen: Soft, no tenderness. LABS: Hemoglobin is 13.8, white count 10.4, creatinine 0.75. DIAGNOSTIC IMPRESSION AND PLAN: Patient with acute COVID-19 pneumonia in this patient who has clinical responding to dexamethasone, Lovenox, zinc and ascorbic acid, to continue along with respiratory support and monitor clinical course closely. MMBISHOPL / IJN: [id number] /
[2021-09-01 07:24] LABS: Glucose,Whole Blood 95 mg/dL (75-99)
[2021-09-01] MEDS: INSULIN ASPART (NovoLOG) 100 UNIT/ML VIAL SQ SCH ×4 (07:51→21:17)
[2021-09-01] MEDS: metFORMIN 500 MG TAB PO SCH ×2 (08:22→17:29)
[2021-09-01] MEDS: DEXAMETHASONE SOD PHOSPHATE 10 MG/ML 1 ML VIAL IV SCH (08:22)
[2021-09-01] MEDS: CHOLECALCIFEROL 25 MCG (1000 IU) TABLET PO SCH (08:22)
[2021-09-01] MEDS: LINAGLIPTIN 5 MG TABLET PO SCH (08:22)
[2021-09-01] MEDS: ZINC SULFATE 220 MG CAP PO SCH (08:22)
[2021-09-01] MEDS: ASCORBIC ACID 500 MG TAB PO SCH (08:22)
[2021-09-01] MEDS: ENOXAPARIN 40 MG/0.4 ML SYRINGE SQ SCH (08:23)
[2021-09-01] MEDS: ALBUTEROL HFA INHALER INHALATION SCH ×4 (08:34→21:17)
[2021-09-01 11:48] LABS: Glucose,Whole Blood 288 mg/dL (75-99)
--- NOTE | 2021-09-01 12:38 | P.PN ---
Subjective Progress Note Date: 09/01/21 46-year-old white male patient with past medical history of diabetes mellitus, never smoker, chronic back pain, patient is not vaccinated against COVID-19, who came into the emergency department on 08/27/2021 for evaluation of shortness of breath, fatigue, decreased oral intake, vomiting. He states he was recently diagnosed with COVID-19, he had a positive COVID-19 test on August 19. His symptoms started a week prior to that around August 15. His is also COVID positive. 09/01/2021, the patient is being seen for a follow-up. The patient is doing well clinically. He is currently on 4 L of oxygen by nasal cannula. Denies having any chest pain. Appetite is good. Tolerating his diet. No nausea. No vomiting. No abdominal pain. No chest pain. Repeat chest x-rays to be obtained tomorrow. Meanwhile, he remains on Decadron per protocol is also on Lovenox for DVT prophylaxis.the patient has no specific complaints otherwise. He is ambulate within his room.on a separate note, his repeat COVID-19 testing came back negative. He remains on 4 L of oxygen. Objective - Vital Signs Vital signs: Vital Signs Temp 97.6 F 09/01/21 10:00 Pulse 86 09/01/21 10:00 Resp 16 09/01/21 10:00 BP 114/74 09/01/21 10:00 Pulse Ox 96 09/01/21 10:00 Intake & Output 08/31/21 09/01/21 09/01/21 18:59 06:59 18:59 Intake Total 800 236 Balance 800 236 Intake: Oral 800 236 Other: Voiding Method Toilet Toilet # Voids 2 2 - Exam No acute distress, oriented 3. Mild respiratory difficulty. Currently on nasal O2 4 L. HEENT examination is grossly unremarkable. Neck supple. Full range of motion. No adenopathy thyromegaly or neck vein distention. Cardiovascular examination reveals regular rhythm rate. S1-S2 normal. No S3 or S4. No discernible murmur noted. Heart rate 86 bpm. Heart sounds are distant. Lungs reveal coarse bilateral inspiratory and expiratory rhonchi. Basilar c rackles are noted. No wheezes. Breath sounds equal bilaterally. Abdomen soft bowel sounds are heard. No masses or tenderness. Extremities are intact. No cyanosis clubbing or edema. Skin is without rash or lesion. Neurologic examination is brief but nonfocal. - Labs CBC & Chem 7: 08/31/21 05:24 08/31/21 05:24 Labs: Abnormal Lab Results - Last 24 Hours (Table) 08/31/21 08/31/21 09/01/21 Range/Units 16:33 20:25 11:47 POC Glucose (mg/dL) 423 H 376 H 288 H (75-99) mg/dL Microbiology - Last 24 Hours (Table) 08/28/21 02:19 Blood Culture - Preliminary Blood No Growth after 96 hours 08/28/21 02:19 Blood Culture - Preliminary Blood No Growth after 96 hours 08/29/21 08:54 Gram Stain - Final Sputum Sputum Culture - Final Assessment and Plan Plan: #1. Acute hypoxic respiratory failure related to acute COVID-19 pneumonia, with onset of symptoms 2 weeks prior to the presentation. Patient is not vaccinated for COVID-19. He had a positive COVID-19 test on August 19, 2021. Patient stat us post monoclonal antibody infusion on an outpatient basis . Not a candidate for Remdesivir at this time, we'll continue with Decadron and prophylactic anticoagulation, CTA chest showed no evidence of pulmonary embolism. #2. Elevated d-dimer, CTA chest negative for pulmonary embolism. #3. Mild hyponatremia, with a serum sodium of 132, related to dehydration. Patient reports poor oral intake and nausea and vomiting at home. #4. Diabetes mellitus type 2. #5. Nonsmoker. Plan: continue oxygen at 4 L and attempt to wean off FiO2 to maintain saturation above 90% Continue Decadron Continue Lovenox chest x-ray in the morning recheck inflammatory markers in a.m. we'll continue to follow. Condition is stable for now.
--- NOTE | 2021-09-01 16:32 | P.PN ---
Progress Note - Text Progress Note Date: 09/01/21 Chief Complaint: Shortness of breath This is a 46-year-old patient who follows with Dr. Joens. Patient is a known diabetic. Patient is not vaccinated against COVID 19. Patient's had respiratory symptoms that started closer 2 weeks ago. Symptoms have been progressive. Increase in shortness of breath. Cough. Fever or chills. No diarrhea. Decrease in taste and smell. Nausea. Poor appetite. Patient's also got the COVID 19. 4 days ago patient did receive the antibodies. Symptoms have been worsening has decided to come in. Pulse ox was 86% on room air upon presentation. Admitted with COVID 19 pneumonitis, acute hypoxic respiratory failure. Started on dexamethasone and supportive care, oxygen. 08/29/2021: In bed. Short of breath. Congested cough. Decrease appetite. Accu-Cheks running into 400 yesterday evening. Started on insulin drip. Oral intake about 50-75% 08/30/2021: Laying in bed. Tired. Some coughing. Eating some. Patient on Levemir started yesterday. 08/31/2021: Up in a chair. Oral intake fair. On 5 L of nasal cannula. Some shortness of breath and cough. 09/01/2021: Up in a chair. Eating a bit better. Oral intake better. Slight cough. Did take a shower. On 5 L of nasal cannula. Review of systems: Was done for constitutional, cardiovascular, GI, pulmonary. relevant finding as above Active Medications Al Hydroxide/Mg Hydroxide (Mag Hydrox/Al Hydrox/Simeth 30 Ml Cup) 15 ml PO Q6HR PRN PRN Reason: Indigestion Albuterol Sulfate (Albuterol Nebulized 2.5 Mg/3 Ml) 2.5 mg INHALATION RT-Q4H PRN PRN Reason: Dyspnea Albuterol Sulfate (Albuterol Hfa Inhaler) 3 puff INHALATION RT-QID [facility] Last Admin: 09/01/21 16:14 Dose: 3 puff Documented by: Ascorbic Acid (Ascorbic Acid 500 Mg Tab) 500 mg PO DAILY [facility] Last Admin: 09/01/21 08:22 Dose: 500 mg Documented by: Calcium Carbonate/Glycine (Calcium Carbonate 500 Mg Chewable) 1,000 mg PO Q4HR PRN PRN Reason: Dyspepsia Cholecalciferol (Cholecalciferol 25 Mcg (1000 Iu) Tablet) 100 mcg PO DAILY [facility] Last Admin: 09/01/21 08:22 Dose: 100 mcg Documented by: Dexamethasone Sodium Phosphate (Dexamethasone Sod Phosphate 10 Mg/Ml 1 Ml Vial) 6 mg IV DAILY [facility] Last Admin: 09/01/21 08:22 Dose: 6 mg Documented by: Enoxaparin Sodium (Enoxaparin 40 Mg/0.4 Ml Syringe) 40 mg SQ DAILY [facility] Last Admin: 09/01/21 08:23 Dose: 40 mg Documented by: Insulin Aspart (Insulin Aspart (Novolog) 100 Unit/Ml Vial) 0 unit SQ [facility]; Protocol Last Admin: 09/01/21 12:25 Dose: 4 unit Documented by: Insulin Detemir (Insulin Detemir (Levemir) 100 Unit/Ml Syr) 18 unit SQ HS [facility] Linagliptin (Linagliptin 5 Mg Tablet) 5 mg PO DAILY@0730 [facility] Last Admin: 09/01/21 08:22 Dose: 5 mg Documented by: Melatonin (Melatonin 3 Mg Tablet) 3 mg PO HS PRN PRN Reason: Insomnia Metformin HCl (Metformin 500 Mg Tab) 1,000 mg PO BID-W/MEALS [facility] Last Admin: 09/01/21 08:22 Dose: 1,000 mg Documented by: Miscellaneous Information (Pneumonia Protocol Utilized 1 Each Misc) 1 each PO ONCE PRN PRN Reason: Per Protocol Naloxone HCl (Naloxone 0.4 Mg/Ml 1 Ml Vial) 0.2 mg IV Q2M PRN PRN Reason: Opioid Reversal Ondansetron HCl (Ondansetron 4 Mg/2 Ml Vial) 4 mg IVP Q8HR PRN PRN Reason: Nausea And Vomiting Zinc Sulfate (Zinc Sulfate 220 Mg Cap) 220 mg PO DAILY [facility] Last Admin: 09/01/21 08:22 Dose: 220 mg Documented by: Past medical history to include: Diabetes mellitus type 2 Social history: . Does not smoke. Alcohol occasionally. [employer] Family history: Reviewed, noncontributory to presentation Physical examination: VITAL SIGNS: 99.7, 96, 16, 122/80, 96% on 5 L GENERAL: Sitting of the chair, awake, not in distress EYES: Pupils equal. Conjunctiva normal. HEENT: External appearance of nose and ears normal, oral cavity grossly normal. PSYCH: Alert and oriented x3; mood and affect anxious. NEUROLOGICAL: Cranial nerves grossly intact; no facial asymmetry, moving all 4 limbs Rest of exam per pulmonary and nursing INVESTIGATIONS, reviewed in the clinical context: August 31: WBC 10.4 d-dimer 2.27 potassium 4.5 CRP 5 August 30: White count 12.5 hemoglobin 14.3 platelets 505 potassium 4.3 crit and 0.84 d-dimer 1.66 LDL 76 August 29: D-dimer 1.53 HbA1c 690 CRP 8.7 WBC 10.4 hemoglobin 15.3 platelets 400 d-dimer 1.39 sodium 132 potassium 4.7 BUN 18 creatinine 0.85 troponin I less than 0.012 EKG tracing personally reviewed by me-normal sinus rhythm Chest x-ray film personally reviewed by me-bilateral scattered infiltrates Computed tomography scan of chest angina for PE: Negative for PE. Extensive pulmonary airspace infiltrates Assessment and plan: -Acute bilateral severe pneumonitis/COVID 19, in a non-vaccinated patient. Received antibody treatment 4 days prior to admission: Slow to respond Lovenox subcu day, oxygen supplementation, vitamin C, vitamin D, zinc sulfate, IV Decadron. -Acute hypoxic respiratory failure from COVID 19: Slow to respond On 5 L of nasal cannula -Diabetes mellitus type 2 on oral hypoglycemic: Uncontrolled with hyperglycemia HbA1c 8.4 IV Levemir 18 units. Glucophage 1000 milligrams twice a day. Trajenta 5 mg daily -Mild hyponatremia from decreased solute intake -Hypoalbuminemia, acute phase reactant Oxygen supplementation, IV Decadron, subcu Lovenox,. Sliding scale to continue. Decrease Levemir to 18 units. Follow d-dimer CRP.
[2021-09-01 17:16] LABS: Glucose,Whole Blood 316 mg/dL (75-99)
--- NOTE | 2021-09-01 18:11 | PN ---
PROGRESS NOTE DATE OF SERVICE: 09/01/2021 REASON FOR FOLLOWUP: COVID-19 pneumonia. INTERVAL HISTORY: Patient is afebrile. The patient is breathing more comfortably. Patient denies having any chest pain or cough. No abdominal pain. No diarrhea. PHYSICAL EXAMINATION: Blood pressure 122/80 with a pulse of 93, temperature of 99.5. He is 92% on 5 L nasal cannula. General description is a middle-aged male up in the bed in no distress. Respiratory system: Unlabored breathing, decreased intensity of breath sounds. No wheeze. Heart S1, S2. Regular rate and rhythm. Abdomen soft, no tenderness. LABS: No new labs have been obtained today. DIAGNOSTIC IMPRESSION AND PLAN: Patient with acute COVID-19 pneumonia in this patient who seems to have shown some clinical improvement. The patient at this time continue with dexamethasone, Lovenox, ascorbic acid and monitor clinical course closely. MMODL / IJN: [id number] /
[2021-09-01 20:42] LABS: Glucose,Whole Blood 233 mg/dL (75-99)
[2021-09-01] MEDS: INSULIN DETEMIR (LEVEMIR) 100 UNIT/ML SYR SQ SCH (21:17)
[2021-09-02 07:32] LABS: Glucose,Whole Blood 152 mg/dL (75-99)
--- NOTE | 2021-09-02 07:32 | XR ---
EXAMINATION TYPE: XR chest 1V portable DATE OF EXAM: 09/02/2021 Comparison: 08/30/2021 Clinical History: 46-year-old male covid Findings: Heart normal size. Aorta and pulmonary vasculature within normal limits. Patchy multifocal opacities greatest in the mid and lower lungs persist without significant change. Impression: Similar bilateral COVID infiltrates.
[2021-09-02] MEDS: INSULIN ASPART (NovoLOG) 100 UNIT/ML VIAL SQ SCH ×4 (07:36→20:58)
[2021-09-02] MEDS: CHOLECALCIFEROL 25 MCG (1000 IU) TABLET PO SCH (07:37)
[2021-09-02] MEDS: LINAGLIPTIN 5 MG TABLET PO SCH (07:37)
[2021-09-02] MEDS: ENOXAPARIN 40 MG/0.4 ML SYRINGE SQ SCH (07:37)
[2021-09-02] MEDS: metFORMIN 500 MG TAB PO SCH ×2 (07:37→17:26)
[2021-09-02] MEDS: ASCORBIC ACID 500 MG TAB PO SCH (07:37)
[2021-09-02] MEDS: DEXAMETHASONE SOD PHOSPHATE 10 MG/ML 1 ML VIAL IV SCH (07:38)
[2021-09-02] MEDS: ZINC SULFATE 220 MG CAP PO SCH (07:38)
[2021-09-02] MEDS: ALBUTEROL HFA INHALER INHALATION SCH ×4 (08:17→19:27)
[2021-09-02 11:34] LABS: Glucose,Whole Blood 245 mg/dL (75-99)
--- NOTE | 2021-09-02 14:47 | P.PN ---
Subjective Progress Note Date: 09/02/21 On today's evaluation of 09/02/2021, the patient is doing well. I was able to wean him down from 4 L down to 2 L. Pulse ox is around 92%. He is doing well. Has no specific complaints. No fever or chills. No nausea or vomiting or abdominal pain. No altered mentation. He remains on Lovenox 4 mg subcu for DVT prophylaxis. He remains on Decadron 6 mg IV every 24 hours. Chest x-ray findings and essentially unchanged the patient continues to have diffuse bilateral airspace disease consistent with COVID-19 related pneumonia. D-dimer from today is at 1.62. Blood sugars up to 45. LDH level was dropping it was down to 699 based on the blood test that was done on 08/30/2021. Repeat COVID- 19 testing came back negative on 09/01/2021. The patient has no other new complaints otherwise for now. Objective - Vital Signs Vital signs: Vital Signs Temp 98 F 09/02/21 14:00 Pulse 102 H 09/02/21 14:00 Resp 16 09/02/21 14:00 BP 111/66 09/02/21 14:00 Pulse Ox 97 09/02/21 14:00 Intake & Output 09/01/21 09/02/21 09/02/21 18:59 06:59 18:59 Intake Total 708 472 Balance 708 472 Intake: Oral 708 472 Other: # Voids 1 2 - Exam No acute distress, oriented 3. Mild respiratory difficulty. Currently on nasal O2 2 L HEENT examination is grossly unremarkable. Neck supple. Full range of motion. No adenopathy thyromegaly or neck vein distention. Cardiovascular examination reveals regular rhythm rate. S1-S2 normal. No S3 or S4. No discernible murmur noted. Heart rate 86 bpm. Heart sounds are distant. Lungs reveal coarse bilateral inspiratory and expiratory rhonchi. Basilar crack les are noted. No wheezes. Breath sounds equal bilaterally. Abdomen soft bowel sounds are heard. No masses or tenderness. Extremities are intact. No cyanosis clubbing or edema. Skin is without rash or lesion. Neurologic examination is brief but nonfocal. - Labs CBC & Chem 7: 08/31/21 05:24 08/31/21 05:24 Labs: Abnormal Lab Results - Last 24 Hours (Table) 09/01/21 09/01/21 09/02/21 Range/Units 17:15 20:41 05:52 D-Dimer (<0.60) mg/L FEU POC Glucose (mg/dL) 316 H 233 H (75-99) mg/dL C-Reactive Protein 2.1 H (<1.0) mg/dL 09/02/21 09/02/21 09/02/21 Range/Units 05:55 07:30 11:33 D-Dimer 1.62 H (<0.60) mg/L FEU POC Glucose (mg/dL) 152 H 245 H (75-99) mg/dL C-Reactive Protein (<1.0) mg/dL Microbiology - Last 24 Hours (Table) 08/28/21 02:19 Blood Culture - Preliminary Blood No Growth after 120 hours 08/28/21 02:19 Blood Culture - Preliminary Blood No Growth after 120 hours Assessment and Plan Plan: #1. Acute hypoxic respiratory failure related to acute COVID-19 pneumonia, with onset of symptoms 2 weeks prior to the presentation. Patient is not vaccinated for COVID-19. He had a positive COVID-19 test on August 19, 2021. Patient status post monoclonal antibody infusion on an outpatient basis . Not a candidate for Remdesivir at this time, we'll continue with Decadron and prophylactic anticoagulation, CTA chest showed no evidence of pulmonary embolism. #2. Elevated d-dimer, CTA chest negative for pulmonary embolism. #3. Mild hyponatremia, with a serum sodium of 132, related to dehydration. Patient reports poor oral intake and nausea and vomiting at home. #4. Diabetes mellitus type 2. #5. Nonsmoker. Plan: I wean the patient down to 2 L about 2 by nasal cannula, we'll try to wean down further accordingly. D-dimer is not elevated at 1.62 Clinically improved and the patient is stable Chest x-ray findings are stable Possible discharge within the next 24-48 hours. We'll reevaluate his need for home O2 at a time of discharge.
[2021-09-02 17:20] LABS: Glucose,Whole Blood 399 mg/dL (75-99)
--- NOTE | 2021-09-02 18:53 | P.PN ---
Progress Note - Text Progress Note Date: 09/02/21 Chief Complaint: Shortness of breath This is a 46-year-old patient who follows with Dr. Jones. Patient is a known diabetic. Patient is not vaccinated against COVID 19. Patient's had respiratory symptoms that started closer 2 weeks ago. Symptoms have been progressive. Increase in shortness of breath. Cough. Fever or chills. No diarrhea. Decrease in taste and smell. Nausea. Poor appetite. Patient's also got the COVID 19. 4 days ago patient did receive the antibodies. Symptoms have been worsening has decided to come in. Pulse ox was 86% on room air upon presentation. Admitted with COVID 19 pneumonitis, acute hypoxic respiratory failure. Started on dexamethasone and supportive care, oxygen. 08/29/2021: In bed. Short of breath. Congested cough. Decrease appetite. Accu-Cheks running into 400 yesterday evening. Started on insulin drip. Oral intake about 50-75% 08/30/2021: Laying in bed. Tired. Some coughing. Eating some. Patient on Levemir started yesterday. 08/31/2021: Up in a chair. Oral intake fair. On 5 L of nasal cannula. Some shortness of breath and cough. 09/01/2021: Up in a chair. Eating a bit better. Oral intake better. Slight cough. Did take a shower. On 5 L of nasal cannula. 09/02/2021: Doing much better. Oral intake fair. Breathing better. On 5 L of nasal cannula. I [place] nurse to taper it down. Review of systems: Was done for constitutional, cardiovascular, GI, pulmonary. relevant finding as above Active Medications Al Hydroxide/Mg Hydroxide (Mag Hydrox/Al Hydrox/Simeth 30 Ml Cup) 15 ml PO Q6HR PRN PRN Reason: Indigestion Albuterol Sulfate (Albuterol Nebulized 2.5 Mg/3 Ml) 2.5 mg INHALATION RT-Q4H PRN PRN Reason: Dyspnea Albuterol Sulfate (Albuterol Hfa Inhaler) 3 puff INHALATION RT-QID [facility] Last Admin: 09/02/21 15:26 Dose: 3 puff Documented by: Ascorbic Acid (Ascorbic Acid 500 Mg Tab) 500 mg PO DAILY [facility] Last Admin: 09/02/21 07:37 Dose: 500 mg Documented by: Calcium Carbonate/Glycine (Calcium Carbonate 500 Mg Chewable) 1,000 mg PO Q4HR PRN PRN Reason: Dyspepsia Cholecalciferol (Cholecalciferol 25 Mcg (1000 Iu) Tablet) 100 mcg PO DAILY [facility] Last Admin: 09/02/21 07:37 Dose: 100 mcg Documented by: Dexamethasone Sodium Phosphate (Dexamethasone Sod Phosphate 10 Mg/Ml 1 Ml Vial) 6 mg IV DAILY [facility] Last Admin: 09/02/21 07:38 Dose: 6 mg Documented by: Enoxaparin Sodium (Enoxaparin 40 Mg/0.4 Ml Syringe) 40 mg SQ DAILY [facility] Last Admin: 09/02/21 07:37 Dose: 40 mg Documented by: Insulin Aspart (Insulin Aspart (Novolog) 100 Unit/Ml Vial) 0 unit SQ [facility]; Protocol Last Admin: 09/02/21 17:26 Dose: 8 unit Documented by: Insulin Detemir (Insulin Detemir (Levemir) 100 Unit/Ml Syr) 18 unit SQ HS [facility] Last Admin: 09/01/21 21:17 Dose: 18 unit Documented by: Linagliptin (Linagliptin 5 Mg Tablet) 5 mg PO DAILY@0730 [facility] Last Admin: 09/02/21 07:37 Dose: 5 mg Documented by: Melatonin (Melatonin 3 Mg Tablet) 3 mg PO HS PRN PRN Reason: Insomnia Metformin HCl (Metformin 500 Mg Tab) 1,000 mg PO BID-W/MEALS [facility] Last Admin: 09/02/21 17:26 Dose: 1,000 mg Documented by: Miscellaneous Information (Pneumonia Protocol Utilized 1 Each [facility]) 1 each PO ONCE PRN PRN Reason: Per Protocol Naloxone HCl (Naloxone 0.4 Mg/Ml 1 Ml Vial) 0.2 mg IV Q2M PRN PRN Reason: Opioid Reversal Ondansetron HCl (Ondansetron 4 Mg/2 Ml Vial) 4 mg IVP Q8HR PRN PRN Reason: Nausea And Vomiting Zinc Sulfate (Zinc Sulfate 220 Mg Cap) 220 mg PO DAILY [facility] Last Admin: 09/02/21 07:38 Dose: 220 mg Documented by: Past medical history to include: Diabetes mellitus type 2 Social history: . Does not smoke. Alcohol occasionally. [employer] Family history: Reviewed, noncontributory to presentation Physical examination: VITAL SIGNS: 97.6, 89, 16, 125/79, 95% on 5 L GENERAL: Laying in bed, awake, comfortable EYES: Pupils equal. Conjunctiva normal. HEENT: External appearance of nose and ears normal, oral cavity grossly normal. PSYCH: Alert and oriented x3; mood and affect anxious. NEUROLOGICAL: Cranial nerves grossly intact; no facial asymmetry, moving all 4 limbs Rest of exam per pulmonary and nursing INVESTIGATIONS, reviewed in the clinical context: September 02: D-dimer 1.6 to CRP 2.1 August 31: WBC 10.4 d-dimer 2.27 potassium 4.5 CRP 5 August 30: White count 12.5 hemoglobin 14.3 platelets 505 potassium 4.3 crit and 0.84 d-dimer 1.66 LDL 76 August 29: D-dimer 1.53 HbA1c 690 CRP 8.7 WBC 10.4 hemoglobin 15.3 platelets 400 d-dimer 1.39 sodium 132 potassium 4.7 BUN 18 creatinine 0.85 troponin I less than 0.012 EKG tracing personally reviewed by me-normal sinus rhythm Chest x-ray film personally reviewed by me-bilateral scattered infiltrates Computed tomography scan of chest angina for PE: Negative for PE. Extensive pulmonary airspace infiltrates Assessment and plan: -Acute bilateral severe pneumonitis/COVID 19, in a non-vaccinated patient. Received antibody treatment 4 days prior to admission: Improving Lovenox subcu day, oxygen supplementation, vitamin C, vitamin D, zinc sulfate, Decadron. -Acute hypoxic respiratory failure from COVID 19: Improving On 5 L of nasal cannula -Diabetes mellitus type 2 on oral hypoglycemic: Uncontrolled with hyperglycemia HbA1c 8.4 IV Levemir 18 units. Glucophage 1000 milligrams twice a day. Trajenta 5 mg daily -Mild hyponatremia from decreased solute intake -Hypoalbuminemia, acute phase reactant We changed to by mouth Decadron. Scale back FiO2. Other medications to continue. Discussed with patient. Clinically doing better.
[2021-09-02 20:10] LABS: Glucose,Whole Blood 261 mg/dL (75-99)
[2021-09-02] MEDS: INSULIN DETEMIR (LEVEMIR) 100 UNIT/ML SYR SQ SCH (20:58)
--- NOTE | 2021-09-02 22:38 | PN ---
PROGRESS NOTE DATE OF SERVICE: 09/02/2021 REASON FOR FOLLOWUP: COVID-19 pneumonia. INTERVAL HISTORY: Patient is afebrile. The patient is breathing slightly comfortably. He is down to 2 L nasal cannula. Patient denies having any chest pain, cough, not bringing up any sputum. No abdominal pain. No diarrhea. PHYSICAL EXAMINATION: Blood pressure 122/79 with a pulse of 94, temperature 97.6. He is 97% on 2 L nasal cannula. General description is a middle-aged male up in the bed in no distress. Respiratory system: Unlabored breathing, decreased intensity of breath sounds. No wheeze. Heart S1, S2. Regular rate and rhythm. Abdomen soft, no tenderness. LABS: D. dimer 1.62. CRP is 2.1. DIAGNOSTIC IMPRESSION AND PLAN: Patient with acute COVID-19 pneumonia in this patient who has shown overall clinical improvement. The patient is currently on Lovenox, dexamethasone, zinc and ascorbic acid to continue along with respiratory support. Monitor clinical course closely. MMODL / IJN: [id number] /
[2021-09-03 07:21] LABS: Glucose,Whole Blood 136 mg/dL (75-99)
[2021-09-03] MEDS: INSULIN ASPART (NovoLOG) 100 UNIT/ML VIAL SQ SCH ×2 (07:53→12:15)
[2021-09-03] MEDS: ENOXAPARIN 40 MG/0.4 ML SYRINGE SQ SCH (07:54)
[2021-09-03] MEDS: ASCORBIC ACID 500 MG TAB PO SCH (07:54)
[2021-09-03] MEDS: ZINC SULFATE 220 MG CAP PO SCH (07:54)
[2021-09-03] MEDS: metFORMIN 500 MG TAB PO SCH (07:54)
[2021-09-03] MEDS: CHOLECALCIFEROL 25 MCG (1000 IU) TABLET PO SCH (07:54)
[2021-09-03] MEDS: LINAGLIPTIN 5 MG TABLET PO SCH (07:55)
[2021-09-03] MEDS: ALBUTEROL HFA INHALER INHALATION SCH ×2 (08:13→11:26)
[2021-09-03] MEDS ORDERED: dexAMETHasone 2 MG TAB PO SCH (09:00)
[2021-09-03 10:35] VITALS: BP 121/78; PULSE 104; RESP 17; TEMP 97.4
[2021-09-03 10:44] LABS: C Reactive Protein 1.3 mg/dL (<1.0)
[2021-09-03 11:36] LABS: Glucose,Whole Blood 271 mg/dL (75-99)
--- NOTE | 2021-09-03 15:21 | P.PN ---
Subjective Progress Note Date: 09/03/21 Principal diagnosis: COVID-19 pneumonia 46-year-old white male patient with past medical history of diabetes mellitus, never smoker, chronic back pain, patient is not vaccinated against COVID-19, who came into the emergency department on 08/27/2021 for evaluation of shortness of breath, fatigue, decreased oral intake, vomiting. He states he was recently diagnosed with COVID-19, he had a positive COVID-19 test on August 19. His symptoms started a week prior to that around August 15. His is also COVID positive. However she is less than him, yesterday he noted he was more short of breath, very weak, and his pulse ox was down to 78-84% on room air, called EMS. Patient states that he did receive the monoclonal antibody treatment a couple days ago however has continued to feel worse. His chest x-ray on 08/27/2021 shows patchy bilateral extensive airspace pneumonia. He was satting 86% on room air in the emergency department, he had a low-grade fever with a temp of 100.8F, he is currently up to 6 L on supplemental oxygen, his pulse ox is 92%, his blood work in the emergency department shows white blood cell count 10.4, hemoglobin of 15.3, full code is 8.4, lymphocyte count 0.7, d-dimer is 1.39, sodium is 132, the rest of electrolytes were unremarkable, plasma lactic acid was 1.3, AST and ALT were 48 and 39, alkaline phosphatase was 156, troponin was less than 0.012, proBNP was normal at 64. CTA chest has been completed showing no evidence of pulmonary embolism, it did show extensive pulmonary airspace infiltrates. EKG showed normal sinus rhythm. Patient was given a liter and a fluid bolus with 0.9 normal saline, his maintenance IVs currently is at 100 ML per hour, he was started on IV Lovenox 6 mg daily, with initial dose of 10 mg IV push in the emergency department, his Lovenox dose is 60 mg twice daily however there is no evidence of PE. Pro-calcitonin level has been sent and is pending, blood cultures have been sent. On 08/29/2021 patient is seen in follow-up on medical surgical floor, he is currently on 5 L of oxygen, does not appear to be in any acute distress, he does have exertional dyspnea, but he was able to get up in the shower today. Pulse ox on 5 L of oxygen was 93-95%, he was afebrile, hemodynamically has been sta ble. CTA chest showed no evidence of pulmonary embolism. His lower extremity Dopplers were negative for DVT. Patient is Lovenox 40 mg once daily, he is on IV hydration with 0.9 normal saline at a rate of 100 ML per hour. He remains on Decadron 6 mg daily. Pro-calcitonin level was 0.40, LDH was 690, and CRP was 8.7. D-dimer was 1.53. Patient has been started on insulin infusion at 5 units per hour for hyperglycemia. He remains on Decadron 6 mg daily, he is on COVID- 19 vitamins. His antibiotics have been discontinued in view of negative pro- calcitonin. Overall she is feeling better, his had no fevers overnight. On 09/03/2021 patient seen in follow-up on medical surgical floor, he is awake and alert, he is resting comfortably in bed, currently he is on 2 L of oxygen pulse ox is 94%, he is breathing comfortably, he has been tolerating ambulation in the room, respirations are nonlabored, patient did qualify for home oxygen as he desaturated to 84% with ambulation, he will be going home on 2 L of oxygen. Vital signs have been stable, no fever or chills, his cough is improving, no chest discomfort. His labs have been reviewed, his d-dimer is improving and is down to 1.31, CRP is also improving and is down to 1.3, LDH is within normal limits at 616. Appetite is fair, no acute events overnight, his chest x-ray from yesterday shows bilateral COVID infiltrates. Clinically stable, and patient will be discharged home today Objective - Vital Signs Vital signs: Vital Signs Temp 97.4 F L 09/03/21 09:09 Pulse 104 H 09/03/21 09:09 Resp 17 09/03/21 09:09 BP 121/78 09/03/21 09:09 Pulse Ox 93 L 09/03/21 09:37 Intake & Output 09/02/21 09/03/21 09/03/21 18:59 06:59 18:59 Intake Total 708 Balance 708 Intake: Oral 708 Other: # Voids 3 2 # Bowel Movements 1 - Exam GENERAL EXAM: Alert, very pleasant, 46-year-old white male, on 2 L of oxygen and the pulse ox of 94% comfortable in no apparent distress. HEAD: Normocephalic/atraumatic. EYES: Normal reaction of pupils, equal size. Conjunctiva pink, sclera white. NOSE: Clear with pink turbinates. THROAT: No erythema or exudates. NECK: No masses, no JVD, no thyroid enlargement, no adenopathy. CHEST: No chest wall deformity. Symmetrical expansion. LUNGS: Equal air entry with bibasilar crackles CVS: Regular rate and rhythm, normal S1 and S2, no gallops, no murmurs, no rubs ABDOMEN: Soft, nontender. No hepatosplenomegaly, normal bowel sounds, no guarding or rigidity. EXTREMITIES: No clubbing, no edema, no cyanosis, 2+ pulses and upper and lower extremities. MUSCULOSKELETAL: Muscle strength and tone normal. SPINE: No scoliosis or deformity SKIN: No rashes CENTRAL NERVOUS SYSTEM: Alert and oriented -3. No focal deficits, tone is normal in all 4 extremities. PSYCHIATRIC: Alert and oriented -3. Appropriate affect. Intact judgment and insight. - Labs CBC & Chem 7: 08/31/21 05:24 08/31/21 05:24 Labs: Abnormal Lab Results - Last 24 Hours (Table) 09/02/21 09/02/21 09/03/21 Range/Units 17:19 20:02 07:20 D-Dimer (<0.60) mg/L FEU POC Glucose (mg/dL) 399 H 261 H 136 H (75-99) mg/dL C-Reactive Protein (<1.0) mg/dL 09/03/21 09/03/21 09/03/21 Range/Units 08:05 08:05 11:33 D-Dimer 1.31 H (<0.60) mg/L FEU POC Glucose (mg/dL) 271 H (75-99) mg/dL C-Reactive Protein 1.3 H (<1.0) mg/dL Microbiology - Last 24 Hours (Table) 08/28/21 02:19 Blood Culture - Final Blood No Growth after 144 hours 08/28/21 02:19 Blood Culture - Final Blood No Growth after 144 hours Assessment and Plan Plan: Assessment: #1. Acute hypoxic respiratory failure related to acute COVID-19 pneumonia, with onset of symptoms 2 weeks prior to the presentation. Patient is not vaccinated for COVID-19. He had a positive COVID-19 test on August 19, 2021. Patient status post monoclonal antibody infusion on an outpatient basis . Not a candidate for Remdesivir at this time, we'll continue with Decadron and prophylactic anticoagulation, CTA chest showed no evidence of pulmonary embolism #2. Elevated d-dimer, CTA chest negative for pulmonary embolism #3. Mild hyponatremia, with a serum sodium of 132, related to dehydration. Patient reports poor oral intake and nausea and vomiting at home #4. Diabetes mellitus type 2 #5. Nonsmoker Plan: Patient is stable for discharge home Patient did qualify for home oxygen will be going home on 2 L He will complete a 12 day prednisone taper And 2 weeks of oral anticoagulation in the form of Xarelto He will need outpatient follow-up with Dr. Mari in the office in 2 weeks I performed a history & physical examination of the patient and discussed their management with my nurse practitioner, Lillian Zhao. I reviewed the nurse practitioner's note and agree with the documented findings and plan of care. Lung sounds are positive for diffuse crackles throughout the lung [place]. The findings and the impression was discussed with the patient. I attest to the documentation by the nurse practitioner. Time with Patient: Less than 30
--- NOTE | 2021-09-03 22:14 | P.DS ---
Providers Date of admission: 08/28/21 01:43 Expected date of discharge: 09/03/21 Attending physician: Constantino Diaz Consults: 08/28/21 01:43 Consult Physician Routine Consulting Provider: Jasvir Hidalgo Consult Reason/Comments: Pneumonia. Recent Covid-19 infection Do you want consulting provider notified?: Yes 08/28/21 13:12 Consult Physician Routine Consulting Provider: Mateus Son Consult Reason/Comments: COVID-19 Do you want consulting provider notified?: Yes Primary care physician: Vasiliy Jones [facility] Course: Chief Complaint: Shortness of breath This is a 46-year-old patient who follows with Dr. Jones. Patient is a known diabetic. Patient is not vaccinated against COVID 19. Patient's had respiratory symptoms that started closer 2 weeks ago. Symptoms have been progressive. Increase in shortness of breath. Cough. Fever or chills. No diarrhea. Decrease in taste and smell. Nausea. Poor appetite. Patient's also got the COVID 19. 4 days ago patient did receive the antibodies. Symptoms have been worsening has decided to come in. Pulse ox was 86% on room air upon presentation. Admitted with COVID 19 pneumonitis, acute hypoxic respiratory failure. Started on dexamethasone and supportive care, oxygen. Did require insulin for high Accu-Cheks. Patient progressed improved. September 03: Today breathing much improved. Oral intake improved. Pulse ox was 84% with exercise. Will be discharged with home oxygen. Tapering dose of steroids. Care was discussed with the patient. Questions answered. COVID-19 discharge instructions given. Questions answered. Discussion and discharge planning more than 35 minutes Consultation: Dr. Mari and doctors from pulmonary Dr. Hidalgo from ID Past medical history to include: Diabetes mellitus type 2 Social history: . Does not smoke. Alcohol occasionally. [employer] Family history: Reviewed, noncontributory to presentation Physical examination: VITAL SIGNS: 97.6, 89, 16, 125/79, 95% on 5 L GENERAL: Laying in bed, awake, comfortable EYES: Pupils equal. Conjunctiva normal. HEENT: External appearance of nose and ears normal, oral cavity grossly normal. PSYCH: Alert and oriented x3; mood and affect anxious. NEUROLOGICAL: Cranial nerves grossly intact; no facial asymmetry, moving all 4 limbs Rest of exam per pulmonary and nursing INVESTIGATIONS, reviewed in the clinical context: September 02: D-dimer 1.6 to CRP 2.1 August 31: WBC 10.4 d-dimer 2.27 potassium 4.5 CRP 5 August 30: White count 12.5 hemoglobin 14.3 platelets 505 potassium 4.3 crit and 0.84 d-dimer 1.66 LDL 76 August 29: D-dimer 1.53 HbA1c 690 CRP 8.7 Venous Doppler: Negative for DVT WBC 10.4 hemoglobin 15.3 platelets 400 d-dimer 1.39 sodium 132 potassium 4.7 BUN 18 creatinine 0.85 troponin I less than 0.012 EKG tracing personally reviewed by me-normal sinus rhythm Chest x-ray film personally reviewed by me-bilateral scattered infiltrates Computed tomography scan of chest angina for PE: Negative for PE. Extensive pulmonary airspace infiltrates Assessment and plan: -Acute bilateral severe pneumonitis/COVID 19, in a non-vaccinated patient. Re ceived antibody treatment 4 days prior to admission: Better Lovenox subcu day, oxygen supplementation, vitamin C, vitamin D, zinc sulfate, Decadron. DC home on tapering doses of steroids. -Acute hypoxic respiratory failure from COVID 19: Improving On 2 L of nasal cannula. 84% on room air with exercise. -Diabetes mellitus type 2 on oral hypoglycemic: Uncontrolled with hyperglycemia HbA1c 8.4 . Glucophage 1000 milligrams twice a day. Trajenta 5 mg daily -Mild hyponatremia from decreased solute intake -Hypoalbuminemia, acute phase reactant Disposition: Home Plan - Discharge Summary Discharge Rx Participant: No New Discharge Prescriptions: New Zinc Sulfate [Orazinc] 220 mg PO DAILY #30 cap Albuterol Inhaler [Ventolin Hfa Inhaler] 2 puff INHALATION RT-QID #1 gm Ascorbic Acid [Vitamin C] 500 mg PO DAILY #30 tab Rivaroxaban [Xarelto] 2.5 mg PO BID #60 tablet predniSONE 10 mg PO DAILY #30 tab Cholecalciferol [Vitamin D3 (25 Mcg = 1000 Iu)] 100 mcg PO DAILY #100 tablet Continue sitaGLIPtin PHOS/metFORMIN HCL [Janumet 50-1,000 mg Tablet] 1 tab PO AC-BID Discharge Medication List sitaGLIPtin PHOS/metFORMIN HCL [Janumet 50-1,000 mg Tablet] 1 tab PO AC-BID 08/28/21 [History] Albuterol Inhaler [Ventolin Hfa Inhaler] 2 puff INHALATION RT-QID #1 gm 09/03/21 [Rx] Ascorbic Acid [Vitamin C] 500 mg PO DAILY #30 tab 09/03/21 [Rx] Cholecalciferol [Vitamin D3 (25 Mcg = 1000 Iu)] 100 mcg PO DAILY #100 tablet 09/03/21 [Rx] Rivaroxaban [Xarelto] 2.5 mg PO BID #60 tablet 09/03/21 [Rx] Zinc Sulfate [Orazinc] 220 mg PO DAILY #30 cap 09/03/21 [Rx] predniSONE 10 mg PO DAILY #30 tab 09/03/21 [Rx] Follow up Appointment(s)/Referral(s): Vasiliy Jones DO [Primary Care Provider] - 1-2 days (OFFICE WILL CALL YOU WITH APPOINTMENT DATE/TIME.) [facility] [NON-STAFF] - As Needed (oxygen) Lucrecia Mari MD [STAFF PHYSICIAN] - 09/17/21 2:30 pm (APPOINTMENT IS WITH TONY RAMIREZ NP) Patient Instructions/Handouts: Coronavirus Disease 2019 (COVID-19) Discharge Disposition: HOME SELF-CARE
--- NOTE | 2021-09-04 12:04 | CDI ---
Documentation Clarification Form Date: 09/04/2021 11:58:06 AM From: John Barbour Admit Date: 08/28/2021 01:43:00 AM Patient Name: Blake Back Visit Number: [id number] Discharge Date: 09/03/2021 03:30:00 PM ATTENTION: The Clinical Documentation Specialists (CDI) and [facility] Coding Staff appreciate your assistance in clarifying documentation. Please respond to the clarification below the line at the bottom and electronically sign. The CDI & [facility] Coding staff will review the response and follow-up if needed. Please note: Queries are made part of the Legal Health Record. If you have any questions, please contact the author of this message via ITS. Dr. Constantino Diaz The patient presented with the following clinical indicators. Additional clarification regarding the etiology/cause of the clinical indicators is requested. History/Risk Factors: COVDI PNA Clinical Indicators: WBC: 10.4 Lactic acid: WNL Blood cultures: N/A Vitals signs: Temp 100, pulse 103, BP WNL Treatment: IV dexamethasone ID Consult: COVID PNA Antibiotics: IV IV Bolus: In your professional opinion, please clarify if these findings signify one of the following conditions: [ ] Sepsis POA [ ] Sepsis, Not POA [ ] Sepsis ruled out-COVDI only [ ] SIRS, without underlying infectious process [ ] Other, please specify [ ] Unable to determine SIRS Criteria: 2 or more of the following may indicate SIRS -Temperature < 96.8F (36C) or > 101.0F (38.3C) -Heart Rate > 90 bpm -Respiratory Rate > 20 breaths/min or PaCO2 < 32 mmHg -White Blood Cell Count > 12,000 or < 4,000 cells/mm3 or > 10% bands Sepsis, POA MTDD
== END 2021-09-03 15:30 | disposition home or self-care (01) | DRG 871 ==
LOC: EC 21:06 → 4SSUR 08-28 01:43
PROVIDERS: ADMIT Hospitalist; ATTEND Hospitalist
PROC: 3E0333Z Introduction of Anti-inflammatory into Peripheral Vein, Percutaneous Approach (ICD-10-PCS; principal; 2021-08-27)
DX: A41.89 Other specified sepsis (principal); U07.1 COVID-19; J12.82 Pneumonia due to coronavirus disease 2019; J96.01 Acute respiratory failure with hypoxia; E87.1 Hypo-osmolality and hyponatremia; D72.810 Lymphocytopenia; E11.65 Type 2 diabetes mellitus with hyperglycemia; E86.0 Dehydration; E88.09 Other disorders of plasma-protein metabolism, not elsewhere classified; J00 Acute nasopharyngitis [common cold]; Z20.822 Contact with and (suspected) exposure to COVID-19; Z79.84 Long term (current) use of oral hypoglycemic drugs
CPT/HCPCS: 36415; 71045; 71046; 71275; 80048; 80053; 80061; 82009; 83036; 83605; 83615; 83880; 84145; 84484; 85025; 85379; 86140; 87040; 87070; 87205; 87635; 93005; 93970; 94640; 94760; 96361; 96374; 99285